=== PATIENT | male | born 1940 | race Caucasian/White ===

== ENCOUNTER → 2016-07-08 | Outpatient (REF) | payer MEDICARE | LOC: M LAB REF 12:13 | PROVIDERS: ATTEND Surgery | DX: C44.519 Basal cell carcinoma of skin of other part of trunk (principal) ==

== ENCOUNTER → 2016-10-31 | Outpatient (REF) | payer MEDICARE | LOC: M LAB REF 12:57 | PROVIDERS: ATTEND Dermatology | DX: C44.519 Basal cell carcinoma of skin of other part of trunk (principal); L57.0 Actinic keratosis; L81.8 Other specified disorders of pigmentation; C44.619 Basal cell carcinoma of skin of left upper limb, including shoulder ==

== ENCOUNTER → 2016-12-02 | Outpatient (REF) | payer MEDICARE ==
[2016-12-02 13:07] LABS: MEAN CORPUSCULAR HEMOGLOBIN 35.4 pg (27.0-33.0); MEAN CORPUSCULAR HGB CONC 35.5 g/dl (32.0-36.5); MEAN CORPUSCULAR VOLUME 99.7 fl (80.0-96.0); RED CELL DISTRIBUTION WIDTH 12.2 % (11.5-14.5)
[2016-12-02 14:10] LABS: ALBUMIN 3.7 GM/DL (3.2-5.2); ALBUMIN/GLOBULIN RATIO 1.42 (1.00-1.93); ALKALINE PHOSPHATASE 95 U/L (45-117); ALT/SGPT 39 U/L (12-78); ANION GAP 6 MEQ/L (8-16); AST/SGOT 25 U/L (15-37); BILIRUBIN,TOTAL 0.5 MG/DL (0.2-1.0); BLOOD UREA NITROGEN 17 MG/DL (7-18); CALCIUM LEVEL 8.8 MG/DL (8.8-10.2); CARBON DIOXIDE LEVEL 32 MEQ/L (21-32); CHLORIDE LEVEL 105 MEQ/L (98-107); CREATININE FOR GFR 0.86 MG/DL (0.70-1.30); GLOMERULAR FILTRATION RATE > 60.0 (>42); GLUCOSE, FASTING 110 MG/DL (83-110); MAGNESIUM LEVEL 2.2 MG/DL (1.8-2.4); POTASSIUM SERUM 3.7 MEQ/L (3.5-5.1); SODIUM LEVEL 143 MEQ/L (136-145); TOTAL PROTEIN 6.3 GM/DL (6.4-8.2)
== END ==
LOC: M LABDRAW1 12:32
PROVIDERS: ATTEND Internal Medicine
DX: I10 Essential (primary) hypertension (principal); Z79.899 Other long term (current) drug therapy; R73.01 Impaired fasting glucose; R97.20 Elevated prostate specific antigen [PSA]

== ENCOUNTER 2017-01-04 19:33 | Emergency (ER) | payer MEDICARE ==
[~2017-01-04] VITALS: Ht 160 cm; Wt 59.1 kg
[2017-01-04] MEDS ORDERED: OMEP20CA3 PO (19:51)
[2017-01-04] MEDS ORDERED: hytrin PO (19:51)
[2017-01-04] MEDS ORDERED: ECOT81TA5 PO (19:51)
[2017-01-04] MEDS ORDERED: ALBU17IN2 INH (19:51)
[2017-01-04] MEDS ORDERED: LIPI80TA PO (19:51)
[2017-01-04] MEDS ORDERED: CALC500T49 PO (19:51)
[2017-01-04] MEDS ORDERED: MELO15TA4 PO (19:51)
[2017-01-04] MEDS ORDERED: CLAR10CA3 PO (19:51)
[2017-01-04] MEDS ORDERED: ATEN50TA9 PO (19:51)
[2017-01-04] MEDS ORDERED: EXFO5TAB PO (19:51)
[2017-01-04] MEDS ORDERED: PROS5TAB PO (19:51)
[2017-01-04] MEDS ORDERED: NASA1SPR (19:51)
[2017-01-04] MEDS ORDERED: POTA20TA FT (19:51)
[2017-01-04] MEDS ORDERED: MULTCAP11 PO (19:51)
[2017-01-04] MEDS ORDERED: METR0.00 TOP (19:51)
[2017-01-04 20:34] LABS: BASO % 0.7 % (0.0-1.0); EOS # 0.2 K/mm3 (0.0-0.50); EOS % 3.1 % (0.0-3.0); LARGE UNSTAINED CELL # 0.1 K/mm3 (0.0-0.4); LARGE UNSTAINED CELL % 1.8 % (0.0-4.0); LYMPH # 1.5 K/mm3 (1.5-4.5); MEAN CORPUSCULAR HEMOGLOBIN 34.7 pg (27.0-33.0); MEAN CORPUSCULAR HGB CONC 36.3 g/dl (32.0-36.5); MEAN CORPUSCULAR VOLUME 95.6 fl (80.0-96.0); MONO # 0.4 K/mm3 (0.0-0.8); MONO % 6.5 % (0.0-5.0); NEUTROPHILS # 4.5 K/mm3 (1.8-7.7); NEUTROPHILS % 67.1 % (36.0-66.0); PLATELET COUNT, AUTOMATED 161 k/mm3 (150-450); RED CELL DISTRIBUTION WIDTH 11.8 % (11.5-14.5); VENOUS BASE EXCESS 3.2 (-2.0-2.0); VENOUS O2 SATURATION 59.9 % (60.0-80.0); VENOUS PARTIAL PRESSURE CO2 40.5 mmHg (38.0-50.0); VENOUS PARTIAL PRESSURE O2 29.9 mmHg (30.0-50.0); VENOUS STANDARD HCO3 26.2 MEQ/L; VENOUS TOTAL CO2 28.6 MEQ/L (24.0-28.0); WHITE BLOOD COUNT 6.7 K/mm3 (4.0-10.0)
[2017-01-04] MEDS: IPRATROPIUM 0.5MG/ALBUTEROL 2.5MG INH SOL UD 3ML (DUONEB)(J7620) NEB PRN ×2 (20:57→21:08)
[2017-01-04 21:00] LABS: ALBUMIN 4.1 GM/DL (3.2-5.2); ALBUMIN/GLOBULIN RATIO 1.64 (1.00-1.93); ALKALINE PHOSPHATASE 113 U/L (45-117); ANION GAP 8 MEQ/L (8-16); AST/SGOT 28 U/L (15-37); BILIRUBIN,DIRECT 0.2 MG/DL (0.0-0.2); BILIRUBIN,TOTAL 0.8 MG/DL (0.2-1.0); BLOOD UREA NITROGEN 19 MG/DL (7-18); CARBON DIOXIDE LEVEL 30 MEQ/L (21-32); CHLORIDE LEVEL 102 MEQ/L (98-107); GLOMERULAR FILTRATION RATE > 60.0 (>42); GLUCOSE, FASTING 113 MG/DL (83-110); POTASSIUM SERUM 3.6 MEQ/L (3.5-5.1); SODIUM LEVEL 140 MEQ/L (136-145); TOTAL PROTEIN 6.6 GM/DL (6.4-8.2)
[2017-01-04 21:04] LABS: ALT/SGPT 40 U/L (12-78)
[2017-01-04 21:49] VITALS: BP 154/65
--- NOTE | 2017-01-05 02:09 | ECGEPIP ---
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
--- NOTE | 2017-01-05 08:44 | REP ---
REASON: Dyspnea. COMPARISON: 05/21/2016 FINDINGS: The superior mediastinal structures are midline. The cardiac silhouette is unremarkable in size, shape, and position. The diaphragmatic surfaces of the lungs are regular, and the costophrenic angles are clear. The pulmonary mccall are clear. The imaged osseous structures are intact. IMPRESSION: There is no acute cardiopulmonary disease. There has been no change from the prior exam. Signed by Andrew Muñoz DO 01/05/2017 09:22 A
[2017-04-08] MEDS ORDERED: LISI10TA4 PO (09:18)
[2017-04-08] MEDS ORDERED: ELIQ5TAB PO (09:18)
== END 2017-01-04 21:51 | disposition home or self-care (01) ==
LOC: M ED 19:33
DX: R06.02 Shortness of breath (principal); I51.9 Heart disease, unspecified; I10 Essential (primary) hypertension; E78.5 Hyperlipidemia, unspecified; Z95.5 Presence of coronary angioplasty implant and graft; Z87.891 Personal history of nicotine dependence; Z82.49 Family history of ischemic heart disease and other diseases of the circulatory system; Z79.82 Long term (current) use of aspirin; Z79.899 Other long term (current) drug therapy

== ENCOUNTER → 2017-01-07 | Outpatient (CLI) | payer MEDICARE ==
[~2017-01-07] MED LIST: ALBU17IN2 INH; AMLO-150; ATEN50TA9 PO; CALC500T49 PO; CLAR10CA3 PO; CLOP75TA2 PO; ECOT81TA5 PO; ELIQ5TAB PO; EXFO5TAB PO; LIPI80TA PO; LISI10TA4 PO; MELO15TA4 PO; METHACHOLINE KIT (J7674) INH ONE; METR0.00 TOP; MULTCAP11 PO; NASA1SPR; OMEP20CA3 PO; POTA20TA FT; PROS5TAB PO; TERA10CA3; hytrin PO
== END ==
LOC: M CARPUL 10:34
PROVIDERS: ATTEND Internal Medicine Pulmonary Disease
DX: R06.02 Shortness of breath (principal); Z53.9 Procedure and treatment not carried out, unspecified reason

== ENCOUNTER → 2017-02-04 | Outpatient (CLI) | payer MEDICARE ==
--- NOTE | 2017-02-04 09:53 | PFTRPT ---
Tech: Eron TINAJERO RRT Age: 76 Sex: Male Race: Height: 65.00 Inches Weight: 150.00 Lbs BSA: 1.75 Diagnosis: R06.02 METHACHOLINE CHALLENGE REPORT: ORDERING PROVIDER: Jose Fountain MD DATE OF SERVICE: 02/04/17 INTERPRETATION: The study was of excellent technical quality. Under protocol, methacholine was administered. Even after a maximal dose of 25 mg (188.875 CDUs) of methacholine , only a maximal 15% decline in the FEV1 was noted. No provocation dose was ever achieved. IMPRESSION: Negative methacholine challenge study. MTDD
== END ==
LOC: M CARPUL 08:43
PROVIDERS: ATTEND Internal Medicine Pulmonary Disease
DX: R06.02 Shortness of breath (principal)
CPT/HCPCS: 94070; 95070; J7674

== ENCOUNTER → 2017-03-02 | Outpatient (CLI) | payer MEDICARE ==
[~2017-03-02] MED LIST changes: -METHACHOLINE KIT (J7674) INH ONE
--- NOTE | 2017-03-06 10:51 | SLEEPCENT ---
DATE OF PROCEDURE: 03/02/2017 ORDERED BY: Dr. Fountain Nocturnal polysomnography was performed due to concern for the obstructive sleep apnea syndrome in this patient with a history of excessive somnolence and snoring complicated by a prior history of acute myocardial infarction. 7 hours and 28 minutes of data were reviewed. There were 348 minutes of sleep identified. Sleep latency was normal at 26 minutes. Rapid eye movement (REM) latency was normal at 71 minutes. Sleep architecture showed fragmentation. Some periods of wake resulted in a reduced sleep efficiency of 78.5%. Total REM time was mildly reduced as well. Electrocardiogram (EKG) showed a sinus rhythm with an average heart rate of 56 beats per minute. Some rate variability was seen surrounding respiratory events. Rate ranged 45 to 80. Electroencephalogram (EEG) showed normal waveforms for awake and sleep. No focal events were identified. There were 57 respiratory events identified of 10 seconds in duration or greater for an apnea-hypopnea index of 9.8. The events were primarily obstructive, not exclusive to sleep stage, more frequent but not exclusive to the supine posture. Arousals from respiratory events occurred 9.8 times per hour when arousals from snoring were included and oxygen desaturations were seen into the 80s. There was also some limb movement activity noted and two trains of 30 events. Limb movement arousal index was borderline at 6.6. IMPRESSION: Obstructive sleep apnea syndrome (G47.33), apnea-hypopnea index 9.8. RECOMMENDATION: The patient should be encouraged to return to the sleep disorder center for pressure therapy. In the interim, alcohol and sedative avoidance should be practiced and caution exercised during the operation of motor vehicles.
== END ==
LOC: M SLEEP 20:00
PROVIDERS: ATTEND Internal Medicine Pulmonary Disease
DX: R06.83 Snoring (principal)

== ENCOUNTER 2017-03-14 09:44 | Emergency (ER) | payer MEDICARE ==
[~2017-03-14] VITALS: Ht 165.1 cm; Wt 68.2 kg
[~2017-03-14 09:44] MED LIST changes: -AMLO-150; -CLOP75TA2 PO; -ELIQ5TAB PO; -LISI10TA4 PO; -TERA10CA3
[2017-03-14] MEDS ORDERED: CLOP75TA2 PO (09:56)
[2017-03-14] MEDS ORDERED: TERA10CA3 (09:56)
[2017-03-14] MEDS ORDERED: AMLO-150 (09:56)
--- NOTE | 2017-03-14 10:22 | REP ---
Portable chest: Single view. History: Chest pain. Comparison study: January 04, 2017. Findings: EKG monitoring electrodes overlie the chest. Lungs are well inflated and clear. Pleural angles are sharp. Heart size is normal. Pulmonary vasculature is not increased. No bony abnormality is seen. Impression: No active disease. Signed by Vamsi Machuca MD 03/14/2017 10:14 A
[2017-03-14 10:24] LABS: BASO % 0.7 % (0.0-1.0); EOS # 0.3 10^3/uL (0.0-0.50); EOS % 4.8 % (0.0-3.0); IMMATURE GRANULOCYTE % 0.2 % (0-0); LYMPH % 19.2 % (24.0-44.0); MEAN CORPUSCULAR HEMOGLOBIN 33.9 pg (27.0-33.0); MEAN CORPUSCULAR HGB CONC 36.5 g/dl (32.0-36.5); MONO # 0.5 10^3/uL (0.0-0.8); MONO % 9.8 % (0.0-5.0); NEUTROPHILS # 3.5 10^3/uL (1.8-7.7); NEUTROPHILS % 65.3 % (36.0-66.0); PLATELET COUNT, AUTOMATED 166 10^3/uL (150-450); RED CELL DISTRIBUTION WIDTH 11.4 % (11.5-14.5); WHITE BLOOD COUNT 5.4 10^3/uL (4.0-10.0)
[2017-03-14 10:39] LABS: INR 0.94
[2017-03-14 11:06] LABS: ALBUMIN 3.8 GM/DL (3.2-5.2); ALBUMIN/GLOBULIN RATIO 1.12 (1.00-1.93); ALKALINE PHOSPHATASE 91 U/L (45-117); ALT/SGPT 45 U/L (12-78); ANION GAP 7 MEQ/L (8-16); AST/SGOT 31 U/L (15-37); BILIRUBIN,DIRECT 0.2 MG/DL (0.0-0.2); BLOOD UREA NITROGEN 15 MG/DL (7-18); CALCIUM LEVEL 9.1 MG/DL (8.8-10.2); CARBON DIOXIDE LEVEL 30 MEQ/L (21-32); CHLORIDE LEVEL 101 MEQ/L (98-107); CREATININE FOR GFR 0.94 MG/DL (0.70-1.30); FREE T4 1.23 NG/DL (0.76-1.46); GLOMERULAR FILTRATION RATE > 60.0 (>42); GLUCOSE, FASTING 112 MG/DL (83-110); POTASSIUM SERUM 3.1 MEQ/L (3.5-5.1); SODIUM LEVEL 138 MEQ/L (136-145); TOTAL PROTEIN 7.2 GM/DL (6.4-8.2)
[2017-03-14] MEDS ORDERED: AMIODARONE HCL 150 MG in APPROPRIATE DILUENT 1 EA IV STA ×2 (11:19→12:39)
[2017-03-14] MEDS ORDERED: ENOXAPARIN 80 MG/0.8 ML SYRINGE (J1650) SC ONE (11:30)
[2017-03-14 13:15] VITALS: BP 143/84
[2017-03-14] MEDS ORDERED: POTASSIUM CHLORIDE 10 MEQ SR TABLET PO ONE (13:30)
--- NOTE | 2017-03-15 05:40 | ECGEPIP ---
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
--- NOTE | 2017-03-16 12:33 | ECGEPIP ---
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
[2017-04-08] MEDS ORDERED: ELIQ5TAB PO (09:18)
[2017-04-08] MEDS ORDERED: LISI10TA4 PO (09:18)
== END 2017-03-14 14:02 | disposition home or self-care (01) ==
LOC: M ED 09:44
DX: I48.0 Paroxysmal atrial fibrillation (principal); I25.10 Atherosclerotic heart disease of native coronary artery without angina pectoris; E87.6 Hypokalemia; I10 Essential (primary) hypertension; J30.2 Other seasonal allergic rhinitis; Z95.5 Presence of coronary angioplasty implant and graft; Z79.82 Long term (current) use of aspirin; Z79.899 Other long term (current) drug therapy
CPT/HCPCS: 71010; 80048; 80076; 82550; 82553; 83690; 83880; 84439; 84443; 84484; 85025; 85610; 85730; 93005; 93041; 94760; 96374; 96375; 99285; J1650

== ENCOUNTER → 2017-04-01 | Outpatient (CLI) | payer MEDICARE ==
[~2017-04-01] MED LIST changes: +AMLO-150; +CLOP75TA2 PO; +ELIQ5TAB PO; +LISI10TA4 PO; +TERA10CA3
--- NOTE | 2017-04-08 07:42 | SLEEPCENT ---
DATE OF PROCEDURE: 04/01/2017 ORDERED BY: Dr. Fountain. Nocturnal polysomnography was performed for the titration of pressure therapy in this patient with obstructive sleep apnea syndrome, apnea-hypopnea index of 9.8. For testing, a ResMed AirTouch F20 full face mask of medium size was used. 4 cm of water pressure were applied to the circuit and the lights were extinguished. 7 hours and 35 minutes of data were reviewed. There were 340 minutes of sleep identified. Sleep latency was prolonged at 80 minutes. REM latency was short at 70 minutes. Sleep architecture improved with optimal pressure therapy. There were 3 rapid eye movement (REM) periods appreciated. Overall sleep efficiency was 75.8%. EKG showed a sinus rhythm with an average heart rate of 55 beats per minute. EEG showed normal wave forms for wake and sleep. Respiratory events persisted prompting an increase in CPAP pressure. Despite optimal mask fit and minimal air leak, the patient was changed to a bilevel device. Respiratory events were found best palliated with bilevel device with inspiratory pressure 13 over expiratory pressure of 8 with which pressure patient slept through REM without respiratory event or oxygen desaturation. Some limb activity was noted in the EMG. Limb movement arousal index was 5.3. IMPRESSION: Obstructive sleep apnea syndrome (G47.33). RECOMMENDATION: Nightly use of bilevel pressure therapy inspiratory 13 over expiratory pressure of 8.
== END ==
LOC: M SLEEP 19:39
PROVIDERS: ATTEND Internal Medicine Pulmonary Disease
DX: G47.33 Obstructive sleep apnea (adult) (pediatric) (principal)

== ENCOUNTER → 2017-05-15 | Outpatient (REF) | payer MEDICARE ==
[2017-05-15 12:43] LABS: MEAN CORPUSCULAR HEMOGLOBIN 33.6 pg (27.0-33.0); MEAN CORPUSCULAR HGB CONC 34.6 g/dl (32.0-36.5); MEAN CORPUSCULAR VOLUME 97.1 fl (80.0-96.0); PLATELET COUNT, AUTOMATED 172 10^3/uL (150-450); RED CELL DISTRIBUTION WIDTH 11.9 % (11.5-14.5); WHITE BLOOD COUNT 4.1 10^3/uL (4.0-10.0)
[2017-05-15 13:22] LABS: ALBUMIN 3.8 GM/DL (3.2-5.2); ALBUMIN/GLOBULIN RATIO 1.41 (1.00-1.93); ALKALINE PHOSPHATASE 85 U/L (45-117); ALT/SGPT 39 U/L (12-78); ANION GAP 9 MEQ/L (8-16); AST/SGOT 24 U/L (7-37); BILIRUBIN,TOTAL 0.7 MG/DL (0.2-1.0); BLOOD UREA NITROGEN 14 MG/DL (7-18); CARBON DIOXIDE LEVEL 30 MEQ/L (21-32); CHLORIDE LEVEL 105 MEQ/L (98-107); CHOLESTEROL LEVEL 121 MG/DL (<200); CREATININE FOR GFR 0.99 MG/DL (0.70-1.30); GLOMERULAR FILTRATION RATE > 60.0 (>42); GLUCOSE, FASTING 107 MG/DL (83-110); MAGNESIUM LEVEL 2.1 MG/DL (1.8-2.4); POTASSIUM SERUM 4.1 MEQ/L (3.5-5.1); SODIUM LEVEL 144 MEQ/L (136-145); TOTAL PROTEIN 6.5 GM/DL (6.4-8.2); TRIGLYCERIDES LEVEL 60 MG/DL (<150)
== END ==
LOC: M LABDRAW1 10:06
PROVIDERS: ATTEND Internal Medicine
DX: I25.10 Atherosclerotic heart disease of native coronary artery without angina pectoris (principal); I10 Essential (primary) hypertension; R73.01 Impaired fasting glucose; E78.00 Pure hypercholesterolemia, unspecified

== ENCOUNTER → 2017-06-30 | Outpatient (REF) | payer MEDICARE | LOC: M SFHCLERA 09:05 | DX: L82.1 Other seborrheic keratosis (principal) | CPT/HCPCS: 88305 ==

== ENCOUNTER → 2017-08-28 | Outpatient (CLI) | payer MEDICARE | LOC: M RAD 07:43 | DX: K76.89 Other specified diseases of liver (principal); N28.1 Cyst of kidney, acquired | CPT/HCPCS: 76705 ==

== ENCOUNTER → 2017-10-09 | Outpatient (REF) | payer MEDICARE | LOC: M SFHCLERA 12:01 | DX: C44.41 Basal cell carcinoma of skin of scalp and neck (principal) | CPT/HCPCS: 88305 ==

== ENCOUNTER → 2017-11-26 | Outpatient (REF) | payer MEDICARE ==
[2017-11-26 12:29] LABS: HEMATOCRIT 38.1 % (42.0-52.0); HEMOGLOBIN 13.1 g/dl (13.5-17.5); MEAN CORPUSCULAR HEMOGLOBIN 33.8 pg (27.0-33.0); MEAN CORPUSCULAR HGB CONC 34.4 g/dl (32.0-36.5); MEAN CORPUSCULAR VOLUME 98.2 fl (80.0-96.0); PLATELET COUNT, AUTOMATED 163 10^3/uL (150-450); RED BLOOD COUNT 3.88 10^6/uL (4.30-6.10); RED CELL DISTRIBUTION WIDTH 11.9 % (11.5-14.5); WHITE BLOOD COUNT 5.8 10^3/uL (4.0-10.0)
[2017-11-26 12:49] LABS: ANION GAP 10 MEQ/L (8-16); BLOOD UREA NITROGEN 22 MG/DL (7-18); CALCIUM LEVEL 8.3 MG/DL (8.8-10.2); CARBON DIOXIDE LEVEL 29 MEQ/L (21-32); CHLORIDE LEVEL 104 MEQ/L (98-107); CREATININE FOR GFR 1.15 MG/DL (0.70-1.30); GLOMERULAR FILTRATION RATE > 60.0 (>42); GLUCOSE, FASTING 130 MG/DL (70-100); POTASSIUM SERUM 3.3 MEQ/L (3.5-5.1); SODIUM LEVEL 143 MEQ/L (136-145)
== END ==
LOC: M LAB REF 12:10
DX: I48.91 Unspecified atrial fibrillation (principal); Z01.812 Encounter for preprocedural laboratory examination
CPT/HCPCS: 80048

== ENCOUNTER → 2017-12-18 | Outpatient (CLI) | payer MEDICARE | LOC: M SMT 15:42 | DX: R06.02 Shortness of breath (principal) | CPT/HCPCS: 71046 ==

== ENCOUNTER → 2018-04-08 | Outpatient (REF) | payer MEDICARE ==
[2018-04-08 11:35] LABS: HEMATOCRIT 37.4 % (42.0-52.0); MEAN CORPUSCULAR HGB CONC 34.8 g/dl (32.0-36.5); MEAN CORPUSCULAR VOLUME 97.9 fl (80.0-96.0); PLATELET COUNT, AUTOMATED 167 10^3/uL (150-450); RED BLOOD COUNT 3.82 10^6/uL (4.30-6.10); RED CELL DISTRIBUTION WIDTH 11.6 % (11.5-14.5); WHITE BLOOD COUNT 4.9 10^3/uL (4.0-10.0)
[2018-04-08 11:49] LABS: ESTIMATED AVERAGE GLUCOSE 105 MG/DL (60-110); HEMOGLOBIN A1c 5.3 %
[2018-04-08 12:28] LABS: ALBUMIN 3.6 GM/DL (3.2-5.2); ALKALINE PHOSPHATASE 94 U/L (45-117); ALT/SGPT 34 U/L (12-78); ANION GAP 9 MEQ/L (8-16); AST/SGOT 26 U/L (7-37); BILIRUBIN,TOTAL 0.8 MG/DL (0.2-1.0); BLOOD UREA NITROGEN 16 MG/DL (7-18); CALCIUM LEVEL 8.8 MG/DL (8.8-10.2); CARBON DIOXIDE LEVEL 30 MEQ/L (21-32); CHLORIDE LEVEL 102 MEQ/L (98-107); CHOLESTEROL LEVEL 114 MG/DL (<200); CHOLESTEROL RISK RATIO 1.932 (<5); CREATININE FOR GFR 0.98 MG/DL (0.70-1.30); GLOMERULAR FILTRATION RATE > 60.0 (>42); GLUCOSE, FASTING 99 MG/DL (70-100); HDL CHOLESTEROL 59 MG/DL (>40); LDL CHOLESTEROL 40 MG/DL (<100); MAGNESIUM LEVEL 2.2 MG/DL (1.8-2.4); NON-HDL-C 55 MG/DL; POTASSIUM SERUM 3.6 MEQ/L (3.5-5.1); PROSTATIC SPECIFIC AG MONITOR 0.33 NG/ML (< 4.0); SODIUM LEVEL 141 MEQ/L (136-145); TRIGLYCERIDES LEVEL 75 MG/DL (<150)
== END ==
LOC: M LABDRAW1 10:35
DX: I10 Essential (primary) hypertension (principal); Z86.010 Personal history of colon polyps; I48.0 Paroxysmal atrial fibrillation; R97.20 Elevated prostate specific antigen [PSA]; R73.01 Impaired fasting glucose
CPT/HCPCS: 83735

== ENCOUNTER 2018-05-01 21:31 | Emergency (ER) | payer MEDICARE ==
[2018-05-01] MEDS: NS 500 ML IV ×2 (22:00→23:20)
[2018-05-01] MEDS: ONDANSETRON 4MG/2ML VIAL (J2405) IV (22:01)
[2018-05-01 22:22] LABS: INR 1.04; PROTHROMBIN TIME 13.8 SECONDS (12.1-14.4)
[2018-05-01 22:23] LABS: PARTIAL THROMBOPLASTIN TIME 23.7 SECONDS (25.4-37.6)
[2018-05-01 22:26] LABS: BASO % 0.3 % (0.0-1.0); EOS # 0.2 10^3/uL (0.0-0.50); EOS % 1.4 % (0.0-3.0); HEMATOCRIT 42.9 % (42.0-52.0); HEMOGLOBIN 14.9 g/dl (13.5-17.5); IMMATURE GRANULOCYTE % 0.6 % (0-3.0); LYMPH # 0.7 10^3/uL (1.5-4.5); LYMPH % 5.8 % (24.0-44.0); MEAN CORPUSCULAR HGB CONC 34.7 g/dl (32.0-36.5); MEAN CORPUSCULAR VOLUME 97.9 fl (80.0-96.0); MONO # 0.7 10^3/uL (0.0-0.8); MONO % 5.8 % (0.0-5.0); NEUTROPHILS # 10.8 10^3/uL (1.8-7.7); NEUTROPHILS % 86.1 % (36.0-66.0); PLATELET COUNT, AUTOMATED 179 10^3/uL (150-450); RED BLOOD COUNT 4.38 10^6/uL (4.30-6.10); RED CELL DISTRIBUTION WIDTH 11.7 % (11.5-14.5); WHITE BLOOD COUNT 12.5 10^3/uL (4.0-10.0)
[2018-05-01 22:30] LABS: ALBUMIN 4.4 GM/DL (3.2-5.2); ALBUMIN/GLOBULIN RATIO 1.57 (1.00-1.93); ALKALINE PHOSPHATASE 114 U/L (45-117); ALT/SGPT 66 U/L (12-78); ANION GAP 10 MEQ/L (8-16); AST/SGOT 45 U/L (7-37); BILIRUBIN,DIRECT 0.3 MG/DL (0.0-0.2); BILIRUBIN,TOTAL 1.1 MG/DL (0.2-1.0); BLOOD UREA NITROGEN 28 MG/DL (7-18); CALCIUM LEVEL 9.4 MG/DL (8.8-10.2); CARBON DIOXIDE LEVEL 28 MEQ/L (21-32); CHLORIDE LEVEL 103 MEQ/L (98-107); GLOMERULAR FILTRATION RATE 57.1 (>42); GLUCOSE, FASTING 186 MG/DL (70-100); LIPASE 185 U/L (73-393); POTASSIUM SERUM 3.4 MEQ/L (3.5-5.1); SODIUM LEVEL 141 MEQ/L (136-145); TOTAL PROTEIN 7.2 GM/DL (6.4-8.2)
[2018-05-02] MEDS: ONDANSETRON 4 MG ORAL DISINTEGRATING TAB (Q0162 PER 1MG) PO (00:35)
[2018-05-02 00:45] LABS: KETONE, URINE AUTO RFX TRACE mg/dL (NEGATIVE); MUCUS, URINE RFX LARGE (NEGATIVE); NITRITE, URINE AUTO RFX NEGATIVE (NEGATIVE); RBC, URINE AUTO RFX 9 /HPF (0-3); SPECIFIC GRAVITY UR AUTO RFX 1.025 (1.002-1.035); SQUAM EPITHELIAL CELL UR AURFX 0 /HPF (0-6); WBC, URINE AUTO RFX 2 /HPF (0-3)
[2018-05-02 01:32] LABS: LEUKOCYTE ESTERASE UR AUTO RFX TRACE (NEGATIVE)
== END 2018-05-02 00:37 | disposition home or self-care (01) ==
LOC: M ED 05-02 00:37
DX: K52.9 Noninfective gastroenteritis and colitis, unspecified (principal); E86.0 Dehydration; I11.9 Hypertensive heart disease without heart failure; I25.10 Atherosclerotic heart disease of native coronary artery without angina pectoris; N40.0 Benign prostatic hyperplasia without lower urinary tract symptoms; Z95.5 Presence of coronary angioplasty implant and graft; Z87.891 Personal history of nicotine dependence; Z79.899 Other long term (current) drug therapy; Z79.01 Long term (current) use of anticoagulants; Z79.82 Long term (current) use of aspirin
CPT/HCPCS: J2405

== ENCOUNTER → 2018-09-28 | Outpatient (REF) | payer MEDICARE ==
[~2018-09-28] MED LIST changes: +KLOR20TA42 FT; +MELO15TA28 PO; -MELO15TA4 PO; -POTA20TA FT; +ZOFR4TAB14 PO
== END ==
LOC: M SFHCPLAZ 20:35
PROVIDERS: ATTEND Dermatology
DX: L57.0 Actinic keratosis (principal); L82.1 Other seborrheic keratosis

== ENCOUNTER → 2018-10-12 | Outpatient (CLI) | payer MEDICARE ==
[2018-10-12 13:12] LABS: HEMATOCRIT 36.2 % (42.0-52.0); HEMOGLOBIN 12.6 g/dl (13.5-17.5); MEAN CORPUSCULAR HEMOGLOBIN 33.8 pg (27.0-33.0); MEAN CORPUSCULAR HGB CONC 34.8 g/dl (32.0-36.5); MEAN CORPUSCULAR VOLUME 97.1 fl (80.0-96.0); PLATELET COUNT, AUTOMATED 167 10^3/uL (150-450); RED BLOOD COUNT 3.73 10^6/uL (4.30-6.10); WHITE BLOOD COUNT 4.6 10^3/uL (4.0-10.0)
[2018-10-12 13:37] LABS: ALBUMIN 3.4 GM/DL (3.2-5.2); ALT/SGPT 34 U/L (12-78); BILIRUBIN,TOTAL 0.4 MG/DL (0.2-1.0); BLOOD UREA NITROGEN 21 MG/DL (7-18); CALCIUM LEVEL 8.2 MG/DL (8.8-10.2); CARBON DIOXIDE LEVEL 29 MEQ/L (21-32); CHLORIDE LEVEL 108 MEQ/L (98-107); CREATININE FOR GFR 1.01 MG/DL (0.70-1.30); GLOMERULAR FILTRATION RATE > 60.0 (>42); GLUCOSE, FASTING 99 MG/DL (70-100); MAGNESIUM LEVEL 2.1 MG/DL (1.8-2.4); POTASSIUM SERUM 3.7 MEQ/L (3.5-5.1); SODIUM LEVEL 143 MEQ/L (136-145); THYROID STIMULATING HORMONE 0.723 uIU/ML (0.358-3.740); TOTAL PROTEIN 6.4 GM/DL (6.4-8.2)
== END ==
LOC: M SMT 10:31
PROVIDERS: ATTEND Internal Medicine
DX: R06.09 Other forms of dyspnea (principal); I10 Essential (primary) hypertension; M54.42 Lumbago with sciatica, left side; I48.0 Paroxysmal atrial fibrillation

== ENCOUNTER → 2019-03-25 | Outpatient (CLI) | payer MEDICARE ==
[~2019-03-25] MED LIST changes: -OMEP20CA3 PO; +OMEP20CA4 PO
[2019-03-25 17:06] LABS: HEMATOCRIT 37.8 % (42.0-52.0); MEAN CORPUSCULAR HGB CONC 34.4 g/dl (32.0-36.5); PLATELET COUNT, AUTOMATED 145 10^3/uL (150-450); RED BLOOD COUNT 3.82 10^6/uL (4.30-6.10); WHITE BLOOD COUNT 5.3 10^3/uL (4.0-10.0)
[2019-03-25 17:30] LABS: ALBUMIN 3.5 GM/DL (3.2-5.2); ALT/SGPT 27 U/L (12-78); BILIRUBIN,TOTAL 0.4 MG/DL (0.2-1.0); BLOOD UREA NITROGEN 19 MG/DL (7-18); CALCIUM LEVEL 8.6 MG/DL (8.8-10.2); CARBON DIOXIDE LEVEL 32 MEQ/L (21-32); CHLORIDE LEVEL 106 MEQ/L (98-107); CREATININE FOR GFR 1.02 MG/DL (0.70-1.30); GLOMERULAR FILTRATION RATE > 60.0 (>42); GLUCOSE, FASTING 102 MG/DL (70-100); MAGNESIUM LEVEL 2.1 MG/DL (1.8-2.4); NT-PRO BNP 371 PG/ML (<450); POTASSIUM SERUM 4.3 MEQ/L (3.5-5.1); SODIUM LEVEL 142 MEQ/L (136-145); TOTAL PROTEIN 6.3 GM/DL (6.4-8.2)
== END ==
LOC: M SMT 15:31
PROVIDERS: ATTEND Nurse Practitioner
DX: E83.42 Hypomagnesemia (principal)

== ENCOUNTER → 2019-04-12 | Outpatient (CLI) | payer MEDICARE ==
[2019-04-15 14:13] LABS: TESTOSTERONE FREE (DIRECT) 1.5 pg/mL (6.6-18.1)
== END ==
LOC: M SMT 09:13
PROVIDERS: ATTEND Internal Medicine Advanced Heart Failure and Transplant Cardiology
DX: R79.89 Other specified abnormal findings of blood chemistry (principal)

== ENCOUNTER → 2019-04-23 | Outpatient (CLI) | payer MEDICARE ==
[2019-04-23 10:36] LABS: FREE T4 1.1 NG/DL (0.76-1.46)
[2019-04-23 10:44] LABS: FOLLICLE STIMULATING HORMONE 73.9 mIU/mL (1.4-18.1); LUTEINIZING HORMONE 38.6 mIU/mL (3.1-34.6)
[2019-04-25 00:06] LABS: TESTOSTERONE FREE (DIRECT) 2.6 pg/mL (6.6-18.1)
== END ==
LOC: M SMT 08:31
PROVIDERS: ATTEND Internal Medicine Advanced Heart Failure and Transplant Cardiology
DX: I11.0 Hypertensive heart disease with heart failure (principal); I50.9 Heart failure, unspecified; D64.9 Anemia, unspecified; E78.00 Pure hypercholesterolemia, unspecified

== ENCOUNTER → 2019-04-23 | Outpatient (CLI) | payer MEDICARE ==
[2019-04-23 10:14] LABS: HEMATOCRIT 37.1 % (42.0-52.0); HEMOGLOBIN 12.3 g/dl (13.5-17.5); MEAN CORPUSCULAR HEMOGLOBIN 32.7 pg (27.0-33.0); MEAN CORPUSCULAR HGB CONC 33.2 g/dl (32.0-36.5); MEAN CORPUSCULAR VOLUME 98.7 fl (80.0-96.0); PLATELET COUNT, AUTOMATED 156 10^3/uL (150-450); RED BLOOD COUNT 3.76 10^6/uL (4.30-6.10)
[2019-04-23 10:40] LABS: ALBUMIN 3.7 GM/DL (3.2-5.2); ALT/SGPT 30 U/L (12-78); BILIRUBIN,TOTAL 0.7 MG/DL (0.2-1.0); BLOOD UREA NITROGEN 21 MG/DL (7-18); CALCIUM LEVEL 9.2 MG/DL (8.8-10.2); CARBON DIOXIDE LEVEL 32 MEQ/L (21-32); CHLORIDE LEVEL 106 MEQ/L (98-107); CHOLESTEROL LEVEL 113 MG/DL (<200); CHOLESTEROL RISK RATIO 1.852 (<5); CREATININE FOR GFR 0.99 MG/DL (0.70-1.30); GLOMERULAR FILTRATION RATE > 60.0 (>42); GLUCOSE, FASTING 106 MG/DL (70-100); HDL CHOLESTEROL 61 MG/DL (>40); LDL CHOLESTEROL 39 MG/DL (<100); MAGNESIUM LEVEL 2.2 MG/DL (1.8-2.4); NON-HDL-C 52 MG/DL; POTASSIUM SERUM 4.1 MEQ/L (3.5-5.1); SODIUM LEVEL 143 MEQ/L (136-145); TOTAL PROTEIN 6.1 GM/DL (6.4-8.2); TRIGLYCERIDES LEVEL 64 MG/DL (<150)
== END ==
LOC: M SMT 08:34
PROVIDERS: ATTEND Internal Medicine
DX: D64.9 Anemia, unspecified (principal); I10 Essential (primary) hypertension; E78.00 Pure hypercholesterolemia, unspecified

== ENCOUNTER → 2019-05-03 | Outpatient (REF) | payer MEDICARE ==
[~2019-05-03] MED LIST changes: +AMLO10CA22; +CALC600T60 PO; +FURO20TA2 PO; +LOTR10CA PO; +METRCRM TOP; -NASA1SPR; +NASA1SPR NARES; +OCUVTAB4 PO; +OMEP-172 PO; -OMEP20CA4 PO; +POTA20TA6 PO; -TERA10CA3; +TERA10CA3 PO; +TEST1.622 TOP; +VITA500T41 PO; +VITMTA PO
== END ==
LOC: M LAB REF 18:27
PROVIDERS: ATTEND Dermatology
DX: C44.42 Squamous cell carcinoma of skin of scalp and neck (principal); C44.320 Squamous cell carcinoma of skin of unspecified parts of face; D04.61 Carcinoma in situ of skin of right upper limb, including shoulder; L57.0 Actinic keratosis

== ENCOUNTER → 2019-05-12 | Outpatient (CLI) | payer MEDICARE ==
[~2019-05-12] MED LIST changes: -AMLO10CA22; -CALC600T60 PO; -FURO20TA2 PO; -LOTR10CA PO; -METRCRM TOP; +NASA1SPR; -NASA1SPR NARES; -OCUVTAB4 PO; -OMEP-172 PO; +OMEP20CA4 PO; -POTA20TA6 PO; +TERA10CA3; -TERA10CA3 PO; -TEST1.622 TOP; -VITA500T41 PO; -VITMTA PO
[2019-05-12 13:52] LABS: HEMATOCRIT 38.5 % (42.0-52.0); HEMOGLOBIN 12.9 g/dl (13.5-17.5); MEAN CORPUSCULAR HGB CONC 33.5 g/dl (32.0-36.5); MEAN CORPUSCULAR VOLUME 98.5 fl (80.0-96.0); PLATELET COUNT, AUTOMATED 167 10^3/uL (150-450); RED BLOOD COUNT 3.91 10^6/uL (4.30-6.10); WHITE BLOOD COUNT 5.5 10^3/uL (4.0-10.0)
[2019-05-12 14:17] LABS: ALBUMIN 3.8 GM/DL (3.2-5.2); ALT/SGPT 30 U/L (12-78); BILIRUBIN,TOTAL 0.8 MG/DL (0.2-1.0); BLOOD UREA NITROGEN 20 MG/DL (7-18); CALCIUM LEVEL 8.9 MG/DL (8.8-10.2); CARBON DIOXIDE LEVEL 30 MEQ/L (21-32); CHLORIDE LEVEL 108 MEQ/L (98-107); CREATININE FOR GFR 0.98 MG/DL (0.70-1.30); GLOMERULAR FILTRATION RATE > 60.0 (>42); GLUCOSE, FASTING 110 MG/DL (70-100); NT-PRO BNP 402 PG/ML (<450); SODIUM LEVEL 143 MEQ/L (136-145); TOTAL PROTEIN 6.1 GM/DL (6.4-8.2)
== END ==
LOC: M PLALAB 10:19
PROVIDERS: ATTEND Nurse Practitioner
DX: I50.9 Heart failure, unspecified (principal); R06.00 Dyspnea, unspecified

== ENCOUNTER 2019-05-23 09:44 | Inpatient (IN) | payer MEDICARE ==
[~2019-05-23] VITALS: Ht 165.1 cm; Wt 69.1 kg
[~2019-05-23 09:44] MED LIST changes: -NASA1SPR; +NASA1SPR NARES; +OMEP-172 PO; -OMEP20CA4 PO; -TERA10CA3; +TERA10CA3 PO
[2019-05-23] MEDS ORDERED: POTA20TA6 PO (09:56)
[2019-05-23] MEDS ORDERED: CLOP75TA2 PO (09:56)
[2019-05-23] MEDS ORDERED: AMLO10CA22 (09:56)
[2019-05-23] MEDS ORDERED: TEST1.622 TOP (09:56)
--- NOTE | 2019-05-23 10:33 | REP ---
Portable chest x-ray: Single view. History: Chest pain. Comparison study: December 18, 2017. Findings: The lungs are well inflated and clear. The pleural angles are sharp. EKG monitoring electrodes are seen overlying the chest. Heart size is normal. Pulmonary vasculature is not increased. No bony abnormality. Minimal linear fibrosis versus plate-like atelectasis left base. Impression: Minimal plate-like atelectasis versus linear fibrosis in the left base. Otherwise no acute disease. Electronically Signed by Vamsi Machuca MD 05/23/2019 10:25 A
[2019-05-23 10:58] LABS: BASO % 0.7 % (0.0-1.0); EOS # 0.2 10^3/uL (0.0-0.5); EOS % 4.3 % (0.0-3.0); HEMATOCRIT 37.2 % (42.0-52.0); HEMOGLOBIN 12.6 g/dl (13.5-17.5); LYMPH # 0.9 10^3/uL (1.5-5.0); LYMPH % 20.4 % (24.0-44.0); MEAN CORPUSCULAR HEMOGLOBIN 33.1 pg (27.0-33.0); MEAN CORPUSCULAR HGB CONC 33.9 g/dl (32.0-36.5); MEAN CORPUSCULAR VOLUME 97.6 fl (80.0-96.0); MONO # 0.5 10^3/uL (0.0-0.8); MONO % 12.2 % (0.0-5.0); NEUTROPHILS # 2.6 10^3/uL (1.5-8.5); NEUTROPHILS % 62.4 % (36.0-66.0); PLATELET COUNT, AUTOMATED 170 10^3/uL (150-450); RED BLOOD COUNT 3.81 10^6/uL (4.30-6.10); WHITE BLOOD COUNT 4.2 10^3/uL (4.0-10.0)
[2019-05-23 11:34] LABS: ALBUMIN 3.6 GM/DL (3.2-5.2); ALT/SGPT 35 U/L (12-78); BILIRUBIN,DIRECT 0.2 MG/DL (0.0-0.2); BILIRUBIN,TOTAL 0.7 MG/DL (0.2-1.0); BLOOD UREA NITROGEN 21 MG/DL (7-18); CALCIUM LEVEL 8.8 MG/DL (8.8-10.2); CARBON DIOXIDE LEVEL 30 MEQ/L (21-32); CHLORIDE LEVEL 105 MEQ/L (98-107); CK-MB VALUE MASS 1.8 NG/ML (<3.6); CPK CREATINE PHOSPHOKINASE 981 U/L (39-308); CREATININE FOR GFR 1.02 MG/DL (0.70-1.30); FREE T4 1.18 NG/DL (0.76-1.46); GLOMERULAR FILTRATION RATE > 60.0 (>42); GLUCOSE, FASTING 98 MG/DL (70-100); MAGNESIUM LEVEL 2.2 MG/DL (1.8-2.4); MB/CK RELATIVE INDEX 0.18 (< OR =4); POTASSIUM SERUM 3.8 MEQ/L (3.5-5.1); SODIUM LEVEL 143 MEQ/L (136-145); THYROID STIMULATING HORMONE 0.632 uIU/ML (0.358-3.740); TROPONIN I < 0.02 NG/ML (< 0.10)
[2019-05-23 15:00] LABS: CK-MB VALUE MASS 1.9 NG/ML (<3.6); MB/CK RELATIVE INDEX 0.23 (< OR =4); TROPONIN I 0.2 NG/ML (< 0.10)
[2019-05-23] MEDS ORDERED: METRCRM TOP (16:04)
[2019-05-23] MEDS ORDERED: FURO20TA2 PO (16:04)
[2019-05-23] MEDS ORDERED: OCUVTAB4 PO (16:04)
[2019-05-23] MEDS ORDERED: VITMTA PO (16:04)
[2019-05-23] MEDS ORDERED: VITA500T41 PO (16:04)
[2019-05-23] MEDS ORDERED: CALC600T60 PO (16:04)
[2019-05-23] MEDS ORDERED: LOTR10CA PO (16:04)
[2019-05-23] MEDS ORDERED: LORATADINE 10 MG TAB PO PRN (17:00)
--- NOTE | 2019-05-23 19:49 | ECGEPIP ---
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
[2019-05-23] MEDS: APIXABAN 5 MG TAB (ELIQUIS) PO SCH (20:25)
[2019-05-23] MEDS ORDERED: ATORVASTATIN 20 MG TAB PO SCH (21:00)
[2019-05-23] MEDS ORDERED: TERAZOSIN 5 MG CAP PO SCH (21:00)
[2019-05-23] MEDS ORDERED: FINASTERIDE 5 MG TAB PO SCH (21:00)
--- NOTE | 2019-05-23 21:13 | HPE ---
DATE OF ADMISSION: 05/23/2019 PRIMARY CARE PROVIDER: Cristian Cruz MD CONSTRUCTION ANALYST: Dr. Haddad CHIEF COMPLAINT: Chest pain, dizziness. HISTORY OF PRESENT ILLNESS: 78-year-old male with a history of paroxysmal atrial fibrillation, status post ablation, obstructive sleep apnea, previous smoker, quit over 40 years ago. He was in his usual state of health until around 8:30 this morning when he complained of palpitations. The patient woke up and had a decaffeinated coffee, then felt heaviness in his left chest along with palpitations. He knew that he was going into atrial fibrillation, went over to take his atenolol and water pill. Took a blood pressure and pulse monitor and found that his blood pressure was 117/76 with a heart rate of 164. When the patient went to get his atenolol and his water pill, as he was trying to take it, he felt very dizzy. The patient stated that his heart rate is usually at 105 and 110 and does not usually bother him. Today, aside from lightheadedness and dizziness, the patient felt very bad for about less than 10 minutes. He woke up his out of bed and told her that he was not feeling well. As they got into the car on the way to the hospital, less than 5 to 10 minutes, the patient felt better and did not require any other interventions. He was found to have a heart rate less than 59. He almost told his to go back but "she made me come to be seen." The patient had a similar episode 1 week ago but did not cause any lightheadedness or dizziness. He only had a fluttering sensation without any chest heaviness. Chest heaviness had no radiation. He did not take any nitroglycerin or extra aspirin this morning. It occurred around 8:30 to 8:45 a.m. He otherwise denied any diaphoresis, epigastric pain, nausea, vomiting or shortness of breath. In the emergency room, he was found to be bradycardic with a rate of 54, blood pressure was 138/65. He was 97% on room air. Electrocardiogram (EKG) showed atrial fibrillation with a rate of 107 on arrival. The hospitalist was called to admit for atrial fibrillation with rapid ventricular response. The patient states that he had an ablation 2 years ago and follows with Dr. Espana in the [facility], heart failure specialist, and had his ablation there. He had also a right heart catheterization and a stress test, all of which were negative. His slitting machine feeder said that his shortness of breath at times is not because of his lungs and his cardiology workup has been negative so far. In the emergency room, cardiac markers showed a total CK of 844, initial troponin was less than 0.02. Repeat troponin at 2:20 was 0.2 with MB fraction normal at 1.9, relative index of 0.23, which is normal. Total CK decreased from 981 on admission to 844 currently. The patient also states that he has cut back on his caffeine intake, usually drinks one cup of regular coffee and half of decaffeinated but currently only drinks decaffeinated coffee and no caffeinated beverages. PAST MEDICAL HISTORY: 1. Hypertension. 2. Hypercholesterolemia. 3. Coronary artery disease, stent. 4. Colonic polyps. 5. Paroxysmal atrial fibrillation status post ablation in 2016. 6. Elevated fasting glucose. 7. Elevated PSA. 8. Adenomatous polyp of the colon. 9. Lumbago with sciatica on the left side. 10. Obstructive sleep apnea on home continuous positive airway pressure (CPAP). 11. Dyspnea on exertion with negative pulmonary and cardiac workup. 12. History of skin cancer. 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 14. Pulmonary hypertension. ALLERGIES: No known drug allergies. PAST SURGICAL HISTORY: 1. Cardiac ablation in 2016. 2. Coronary artery disease and stent times three 11/10/2014. 3. Skin cancer removal in the nose. 4. Skin lesions removed from the chest, back -- basal cell carcinoma. 5. Vasectomy. 6. Colonoscopy with polypectomy. 7. Right and left heart catheterization with pulmonary hypertension with left circumflex drug eluting stent placed 07/30/2018, stents in 03/2017 in the mid ramus and osteo left circumflex, drug eluting. 8. Cardiac ablation 12/03/2017. HOME MEDICATIONS: - apixaban 5 mg twice a day - atorvastatin 40 mg at night - Plavix 75 mg daily - B12 500 mcg daily - Proscar 5 mg at night - Lasix 20 mg daily - loratadine 10 mg daily as needed - metronidazole topically as needed for rosacea. 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 He is and lives at home. He has a smoking history but quit 40 years ago, smoked one pack per day from the age of 19 to the age of 31. Social alcohol use. FAMILY HISTORY: Noncontributory due to age. REVIEW OF SYSTEMS: As per history of present illness. 12-point system otherwise negative. PHYSICAL EXAMINATION: Temperature 97, pulse 69, respiratory rate 18, blood pressure 138/65, 100% on room air. GENERAL: The patient is awake, alert, oriented times three. Appears his stated age. No distress, pallor, icterus or jaundice. The patient is slightly hard of hearing. No jugular venous distention (JVD). No thyromegaly. Moist mucous membranes. No cervical lymphadenopathy. LUNGS: Clear to auscultation with no wheezing, rales or rhonchi. HEART: S1, S2. Irregularly irregular. Bradycardic. ABDOMEN: Soft, nontender, nondistended. Positive bowel sounds. EXTREMITIES: No cyanosis, clubbing or any pitting edema. LABORATORY DATA: White count 4.2, hemoglobin 12, hematocrit 37, platelet count 170. Sodium 143, potassium 3.8, chloride 105, bicarbonate 30, BUN 21, creatinine 1.0, glucose 98, calcium 8.8, magnesium 2.2, total bilirubin 0.7, direct bilirubin 8.2, AST 47, ALT 35, alkaline phosphatase 102. Total CK 81, MB fraction 1.8, relative index 0.1, troponin less than 0.02, total protein 6, albumin 3.6, TSH 0.632, free T4 of 1.1. Repeat cardiac markers: Total CK 844, MB fraction 1.9, relative index 0.23, troponin 0.20. Chest x-ray showed minimal plate-like atelectasis versus linear fibrosis in the left base, otherwise no acute disease. Lungs are well inflated. Pleural angles are sharp. EKG monitoring electrodes are seen overlying the chest. Heart size is normal. Pulmonary vasculature is not increased. No bony abnormality. Minimal linear fibrosis versus plate-like atelectasis at the left base. ASSESSMENT AND PLAN: This is a 78-year-old male patient of Dr. Hadadd with a history of coronary artery disease, stent, obstructive sleep apnea on continuous positive airway pressure (CPAP), hypertension, hypercholesterolemia, paroxysmal atrial fibrillation status post ablation and on chronic anticoagulation, atenolol, followed at [facility] heart failure center by Dr. Espana, had a negative right heart catheterization to evaluate his shortness of breath and negative cardiac stress test, presents with acute onset of palpitations, lightheadedness, dizziness, found to have atrial fibrillation with rapid ventricular response with ventricular rate of 164 documented at home and blood pressure 117. The patient is admitted for the following issues: 1. Atrial fibrillation with rapid ventricular response. We will resume the patient's home dose of atenolol. Rate is controlled at the moment, slightly bradycardic. He is admitted to progressive care unit (PCU) with telemetry to monitor for further rapid ventricular response, titrate medications as needed, cycle cardiac markers. Membership Sales Manager, Dr. Haddad, has been consulted and recommends no further workup aside from cardiac markers and telemetry. The patient had a recent cardiac stress test and right heart catheterization, the results of which will be obtained in the morning. 2. Troponin leak, most likely related to atrial fibrillation with rapid ventricular response and not acute myocardial infarction. Cardiac markers will be cycled every 6 hours. Monitor on telemetry overnight and resume home medications. 3. History of coronary artery disease and stent times three. Resumed on aspirin, Plavix and Eliquis. Continue on Lipitor. 4. Benign prostatic hypertrophy (BPH). Continue on Proscar and terazosin, Hytrin. 5. Allergic rhinitis. On chronic loratadine. 6. Deep vein thrombosis (DVT) prophylaxis. Currently on Eliquis. 7. Diet. 2-gram sodium diet. DISPOSITION: Discharge in the morning if stable overnight. [facility]
[2019-05-23 21:30] VITALS: BP 156/72
[2019-05-23 21:41] LABS: CK-MB VALUE MASS 2.1 NG/ML (<3.6); MB/CK RELATIVE INDEX 0.31 (< OR =4); TROPONIN I 0.2 NG/ML (< 0.10)
[2019-05-23 21:50] VITALS: BP 156/72
[2019-05-24] VITALS: BP 137/63
--- NOTE | 2019-05-24 00:53 | ECGEPIP ---
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
[2019-05-24 04:00] VITALS: BP 131/63
[2019-05-24 05:34] LABS: HEMATOCRIT 35.7 % (42.0-52.0); MEAN CORPUSCULAR HEMOGLOBIN 32.8 pg (27.0-33.0); MEAN CORPUSCULAR HGB CONC 33.6 g/dl (32.0-36.5); MEAN CORPUSCULAR VOLUME 97.5 fl (80.0-96.0); PLATELET COUNT, AUTOMATED 166 10^3/uL (150-450); RED BLOOD COUNT 3.66 10^6/uL (4.30-6.10); WHITE BLOOD COUNT 5.6 10^3/uL (4.0-10.0)
[2019-05-24 06:00] LABS: BLOOD UREA NITROGEN 17 MG/DL (7-18); CALCIUM LEVEL 8.4 MG/DL (8.8-10.2); CARBON DIOXIDE LEVEL 29 MEQ/L (21-32); CHLORIDE LEVEL 105 MEQ/L (98-107); CK-MB VALUE MASS 1.6 NG/ML (<3.6); CPK CREATINE PHOSPHOKINASE 448 U/L (39-308); GLOMERULAR FILTRATION RATE > 60.0 (>42); GLUCOSE, FASTING 99 MG/DL (70-100); MB/CK RELATIVE INDEX 0.36 (< OR =4); POTASSIUM SERUM 3.5 MEQ/L (3.5-5.1); SODIUM LEVEL 141 MEQ/L (136-145)
[2019-05-24 07:32] VITALS: BP 126/57
[2019-05-24] MEDS: APIXABAN 5 MG TAB (ELIQUIS) PO SCH (08:11)
[2019-05-24] MEDS ORDERED: CLOPIDOGREL 75 MG TAB PO SCH (09:00)
[2019-05-24] MEDS ORDERED: CYANOCOBALAMIN 500 MCG TAB PO SCH (09:00)
[2019-05-24] MEDS ORDERED: OCUVITE 1 TAB PO SCH (09:00)
[2019-05-24] MEDS ORDERED: POTASSIUM CHLORIDE 10 MEQ SR TABLET PO SCH (09:00)
[2019-05-24] MEDS ORDERED: OMEPRAZOLE 20 MG CAP PO SCH (09:00)
[2019-05-24] MEDS ORDERED: MULTIVITAMINS/MINERALS THERAP 1 TAB PO SCH (09:00)
[2019-05-24] MEDS ORDERED: FUROSEMIDE 20 MG TAB PO SCH (09:00)
[2019-05-24 09:13] LABS: CHOLESTEROL LEVEL 97 MG/DL (<200); CHOLESTEROL RISK RATIO 1.763 (<5); HDL CHOLESTEROL 55 MG/DL (>40); LDL CHOLESTEROL 34 MG/DL (<100); NON-HDL-C 42 MG/DL; TRIGLYCERIDES LEVEL 39 MG/DL (<150)
--- NOTE | 2019-05-25 13:02 | DSES ---
DATE OF ADMISSION: 05/23/2019 DATE OF DISCHARGE: 05/24/2019 PRIMARY DISCHARGE DIAGNOSES: 1. Paroxysmal atrial fibrillation with rapid ventricular response. 2. Troponin leak secondary to atrial fibrillation with rapid ventricular response. 3. Hypertension. 4. Hypercholesterolemia. 5. History of coronary artery disease (CAD) and stent. 6. Elevated prostate-specific antigen (PSA). 7. Elevated fasting glucose. 8. Colonic polyps. 9. Obstructive sleep apnea on chronic CPAP. 78-year-old male with a history of paroxysmal atrial fibrillation status post ablation who presented with acute onset of chest heaviness on the left along with palpitations and feeling of lightheadedness. The patient took his blood pressure and pulse monitor and found that his heart rate was 164. He then went over to take his medications when he felt lightheaded and dizzy. He then took his atenolol and a water pill, woke up his and presented to the ER. Less than [address] to the ER the patient's symptoms resolved and he felt like going back home, but the made him come back for further evaluation. In the ER, he was noted to have atrial fibrillation with rate of 107, then became atrial fibrillation with low rate of 50s and the patient was admitted overnight for further evaluation. He was continued on his home dose of medications including atenolol. Troponin on admission was 0.2 and returned back to 0.1 on discharge. The patient had no recurrent episodes of chest pain. Dr. Haddad was consulted and had cleared the patient for discharge home. Chest x-ray was negative for aortic dissection aneurysm. There is mild platelike atelectasis and linear fibrosis at the left base, but no acute disease. PHYSICAL ON DISCHARGE: Temperature 97.3, pulse 70, respiratory rate 18, blood pressure 126/57, 96% on room air. Lungs are clear to auscultation. No wheezing, rales or rhonchi. Heart S1, S2, irregularly irregular. Abdomen is soft, nontender, nondistended. Extremities no pitting edema. LABORATORY DATA: White count 5.6, hemoglobin 12, hematocrit 35, platelet count 166. TSH 0.632, troponin 0.1, total CK 448, CK-MB 1.6, MB relative index 0.36, sodium 141, potassium 3.5, chloride 105, bicarb 29, BUN 17, random glucose of 99. IMAGING STUDIES: Chest x-ray platelike atelectasis versus linear fibrosis in the left base, otherwise no acute disease. DISCHARGE MEDICATIONS: - amlodipine/benazepril 10-20 one tab daily - Eliquis 5 mg twice a day - atenolol/chlorthalidone 50-25 0.5 mg daily - atorvastatin 40 mg at bedtime - calcium 600 mg daily - Plavix 75 mg daily - vitamin B12 500 mcg daily - Proscar 5 mg at bedtime - Lasix 20 mg daily - Claritin 10 mg daily as needed - Flagyl topical cream for rosacea as needed - multivitamin one tablet daily - Prilosec 20 mg daily - potassium 40 mEq daily - terazosin 10 mg at bedtime - testosterone topically daily - Nasacort two sprays at bedtime - PreserVision AREDS one tablet daily DISCHARGE INSTRUCTIONS: Patient is to have an immediate followup with Dr. Haddad to rule out tachy-elizabeth syndrome. The patient may need a repeat Holter monitor or [place] of Hearts monitor to see if the patient has sick sinus syndrome, may need a pacer placement. At this time, he is to resume his home medications. He is to call his primary care physician and followup within one week of discharge and evp general counsel within five days of hospital discharge. Time spent on discharge: 30 minutes.
--- NOTE | 2019-05-25 14:11 | CR ---
CARDIOLOGY PROGRESS NOTE DATE OF CONSULTATION: 05/24/2019 REQUESTING PROVIDER: Mary Moya MD REASON FOR CONSULTATION: Atrial fibrillation (AFib), rapid ventricular response (RVR), with history of ablation. HISTORY OF PRESENT ILLNESS: Mr. Gregg is a 78-year-old male, well known to our practice. He has come into the hospital after experiencing shortness of breath and palpitations after he consumed coffee yesterday morning. He does have an extensive history that includes paroxysmal AFib with ablation in [place], as well as coronary artery disease (CAD) of a left coronary artery in ramus intermedius. He had a cardiac catheterization recently with two new stents in the circumflex and ramus intermedius. He states he can tell when he goes into AFib, and that is what it felt like yesterday morning after his coffee. He states his heart rate at home was in the 160s when he checked, and blood pressure was normal 110s/70s. Along with palpitations, he felt dizzy and nauseous. He started to feel better on his own without any interventions after 10-15 minute episode. He denies any recent changes in medications or major illnesses. He denies any chest pain or pressure or tightness or any actual loss of consciousness. Surprisingly, in the emergency room (ER), by the time he had arrived, his heart rate was now back down into the 50s. Again, blood pressure remained normal. Electrocardiogram (EKG) confirmed AFib with a rate of 107. Thus far, his first set of cardiac markers were negative and then up to 0.2 times two and then improved to 0.1 troponin as of this morning. He is symptomatically feeling better today. No longer short of breath or feeling a racing heart. He is seen at bedside in progressive care unit (PCU) and is eager to go home. There are not any acute concerns on his EKG or telemetry. 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 ALLERGIES: None. 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 Remote smoking history, about one pack a day for about 12 years and has not smoked for the past 30+ years. Drinks alcohol only socially. Denies any illegal substances. FAMILY HISTORY: He believes there is some heart disease on both sides but unclear on specifics. PAST SURGICAL HISTORY: Cardiac ablation in 2017 and 2018 for AFib and RVR, CAD status post three stents in 2014, and then a right heart catheterization with left circumflex drug-eluting stent in 2019, as well as stents in 2017 in the ramus intermedius and left circumflex, skin cancer excision of the nose and basal cell carcinoma excision over chest and back, vasectomy. HOME MEDICATIONS: - amlodipine/benazepril 10/20 mg one capsule daily - Eliquis 5 mg by mouth twice a day - atenolol/chlorthalidone 50/25 mg 1/2 tablet daily - Lipitor 40 mg by mouth nightly - Tums daily - Plavix 75 mg by mouth daily - vitamin B12 daily - Proscar daily - furosemide 20 mg by mouth daily - Claritin - multivitamins - omeprazole - potassium chloride 40 mEq daily - terazosin - testosterone - Nasacort - PreserVision tablets REVIEW OF SYSTEMS: Ten-point review of systems asked and negative as per history of present illness (HPI). PHYSICAL EXAMINATION: Vital signs: Temperature 97.3, pulse 70, respirations 18, blood pressure (BP) 126/57, mean arterial pressure (MAP) of 80s, pulse oximetry 96% on room air. Per his chart, he is 69 kg and body mass index (BMI) of 25. Resting comfortably in bed in no acute distress, fully alert and oriented, and appropriately conversant. No elevation in jugular venous pulse (JVP). Lung sounds are essentially clear throughout with minimal rhonchi that clear with coughing. Equal chest rise bilaterally. No accessory muscle use or signs of respiratory distress. Heart rate is controlled in the high 80s-90s on examination. Irregular rhythm. Abdomen: Is soft and nontender. Minimal lower extremity edema without any tenderness. LABORATORIES: WBC 5.6, hemoglobin 12, platelets 166. Sodium and potassium 141 and 3.5 with creatinine 1. Troponin trend shows it was negative , again 0.2 overnight, and then down to 0.1 as of this morning. Lipid panel is all surprisingly normal. Thyroid and T4 are normal. IMAGING: Chest x-ray on admission reveals minimal plate-like atelectasis versus linear fibrosis in the left base, otherwise no acute disease. This is per his official read. EKG in the ER reports a heart rate of 59 in sinus bradycardia. ASSESSMENT AND PLAN: Mr. Gregg is a 78-year-old male with a history of coronary artery disease with a history of stents and a recent heart catheterization. He follows in [place] with Dr. Zachariah Espana in [facility]. Their office number is ([id number]) . The patient comes in for palpitations with associated dizziness and lightheadedness and reportedly in AFib and a heart rate in the 150s-160s at home. Found to be actually bradycardic on admission, and now rate is controlled at my time of examination. Considering that his heart rate has normalized on its own and has remained well controlled throughout the night into this morning and the patient is no longer symptomatic, we recommend continuing his regular home regimen and monitoring. He is chronically on Eliquis. He had a recent event recorder that confirmed AFib 2 days ago with an average heart rate in the 60s with a few episodes in the low 60s. His options would include a new antiarrhythmic agent versus possible cardiac ablation. However, these would most likely be considered on an outpatient basis. He did have a mild troponin leak during his stay at 0.2. However, unlikely to be in true ACS event given he was asymptomatic, no chest pain. The troponin leak was likely in response to his RVR episode and has downtrended this morning back to 0.1. Will continue following him in the outpatient basis. I did touch base with his tension machine operator in the [facility], who is Dr. Zachariah Espana, to followup on his recent nuclear stress test and right heart catheterization that he underwent this past week on last 05/18/2019. Per their office staff, they confirmed his nuclear stress test was normal study with an EF of 72%, similar to that of his 2017 stress test. Regarding his right heart catheterization, it was found to have normal right and left filling pressures with pulmonary artery pressures in impaired exercise capacity due to leg fatigue. There was a small increase in cardiac index with exertion, cardiac index up to 2.5, central venous pressure (CVP) of 9, pulmonary artery pressure of 2.4, wedge pressure of 17, but otherwise normal without any recent intervention done last week. Given the above findings, if he does remain otherwise hemodynamically and medically stable, he was okay to be discharged home, to followup in clinic with his normal providers and tension machine operator. If he does get symptomatic again with heart rates tachycardic, he may add on an additional small dose of atenolol if needed. At this point, we will hold off on any antiarrhythmics given his history of coronary artery disease. He is otherwise doing well. No longer in RVR this morning.
== END 2019-05-24 12:00 | disposition home or self-care (01) | DRG 310 ==
LOC: M ED 09:44 → M ED INP 15:43 → ENRESERV 20:49 → M PCU 21:11
PROVIDERS: ADMIT General Practice; ATTEND General Practice
DX: I48.0 Paroxysmal atrial fibrillation (principal); I10 Essential (primary) hypertension; E78.00 Pure hypercholesterolemia, unspecified; I25.10 Atherosclerotic heart disease of native coronary artery without angina pectoris; Z95.2 Presence of prosthetic heart valve; G47.33 Obstructive sleep apnea (adult) (pediatric); Z79.899 Other long term (current) drug therapy; Z87.891 Personal history of nicotine dependence; I27.20 Pulmonary hypertension, unspecified; Z85.828 Personal history of other malignant neoplasm of skin; H90.3 Sensorineural hearing loss, bilateral; M54.5 Low back pain; N40.0 Benign prostatic hyperplasia without lower urinary tract symptoms; J31.0 Chronic rhinitis; Z79.01 Long term (current) use of anticoagulants; R97.20 Elevated prostate specific antigen [PSA]

== ENCOUNTER → 2019-06-29 | Outpatient (REF) | payer MEDICARE ==
[~2019-06-29] MED LIST changes: -AMLO-150; +AMLO-179; +AMLO10CA22; +CALC600T60 PO; +FURO20TA2 PO; +LOTR10CA PO; +METRCRM TOP; +OCUVTAB4 PO; -OMEP-172 PO; +OMEP1CAP73 PO; +POTA20TA6 PO; +TEST1.622 TOP; +VITA500T41 PO; +VITMTA PO
== END ==
LOC: M LAB REF 09:35
PROVIDERS: ATTEND Dermatology
DX: C44.42 Squamous cell carcinoma of skin of scalp and neck (principal)

== ENCOUNTER → 2019-07-07 | Outpatient (CLI) | payer MEDICARE ==
[~2019-07-07] MED LIST changes: +AMLO-150; -AMLO-179
[2019-07-07 18:50] LABS: ALBUMIN 3.8 GM/DL (3.2-5.2); ALT/SGPT 26 U/L (12-78); BILIRUBIN,TOTAL 0.6 MG/DL (0.2-1.0); BLOOD UREA NITROGEN 18 MG/DL (7-18); CALCIUM LEVEL 8.3 MG/DL (8.8-10.2); CARBON DIOXIDE LEVEL 29 MEQ/L (21-32); CHLORIDE LEVEL 109 MEQ/L (98-107); CREATININE FOR GFR 0.92 MG/DL (0.70-1.30); GLOMERULAR FILTRATION RATE > 60.0 (>42); GLUCOSE, FASTING 107 MG/DL (70-100); POTASSIUM SERUM 4.6 MEQ/L (3.5-5.1); SODIUM LEVEL 143 MEQ/L (136-145); TOTAL PROTEIN 6.2 GM/DL (6.4-8.2)
== END ==
LOC: M PLALAB 13:54
PROVIDERS: ATTEND Nurse Practitioner Family
DX: I50.30 Unspecified diastolic (congestive) heart failure (principal); I11.0 Hypertensive heart disease with heart failure

== ENCOUNTER → 2019-07-12 | Outpatient (CLI) | payer MEDICARE ==
[2019-07-12 12:42] LABS: BLOOD UREA NITROGEN 17 MG/DL (7-18); CALCIUM LEVEL 8.7 MG/DL (8.8-10.2); CARBON DIOXIDE LEVEL 29 MEQ/L (21-32); CHLORIDE LEVEL 109 MEQ/L (98-107); CREATININE FOR GFR 0.93 MG/DL (0.70-1.30); GLOMERULAR FILTRATION RATE > 60.0 (>42); GLUCOSE, FASTING 109 MG/DL (70-100); MAGNESIUM LEVEL 1.8 MG/DL (1.8-2.4); POTASSIUM SERUM 4.1 MEQ/L (3.5-5.1); SODIUM LEVEL 143 MEQ/L (136-145)
== END ==
LOC: M PLALAB 10:21
PROVIDERS: ATTEND Internal Medicine Cardiovascular Disease
DX: I48.91 Unspecified atrial fibrillation (principal)

== ENCOUNTER → 2019-07-13 | Outpatient (REF) | payer MEDICARE | LOC: M LAB REF 09:25 | PROVIDERS: ATTEND Dermatology | DX: L57.0 Actinic keratosis (principal) ==

== ENCOUNTER → 2019-08-03 | Outpatient (CLI) | payer MEDICARE ==
[~2019-08-03] MED LIST changes: -AMLO-150; +AMLO-179
[2019-08-03 13:35] LABS: CALCIUM LEVEL 9.2 MG/DL (8.8-10.2); CREATININE FOR GFR 1.57 MG/DL (0.70-1.30); GLOMERULAR FILTRATION RATE 45.8 (>42); POTASSIUM SERUM 4.4 MEQ/L (3.5-5.1)
== END ==
LOC: M PLALAB 10:29
PROVIDERS: ATTEND Internal Medicine Critical Care Medicine
DX: I50.30 Unspecified diastolic (congestive) heart failure (principal)

== ENCOUNTER → 2019-08-16 | Outpatient (CLI) | payer MEDICARE ==
[2019-08-16 16:21] LABS: CALCIUM LEVEL 9.1 MG/DL (8.8-10.2); CREATININE FOR GFR 1.54 MG/DL (0.70-1.30); GLOMERULAR FILTRATION RATE 46.9 (>42); POTASSIUM SERUM 4.4 MEQ/L (3.5-5.1)
== END ==
LOC: M PLALAB 13:11
PROVIDERS: ATTEND Internal Medicine Critical Care Medicine
DX: I50.30 Unspecified diastolic (congestive) heart failure (principal)

== ENCOUNTER → 2019-09-30 | Outpatient (CLI) | payer MEDICARE ==
[2019-09-30 12:23] LABS: HEMATOCRIT 36.1 % (42.0-52.0); HEMOGLOBIN 12.8 g/dl (13.5-17.5); MEAN CORPUSCULAR HEMOGLOBIN 35.1 pg (27.0-33.0); MEAN CORPUSCULAR HGB CONC 35.5 g/dl (32.0-36.5); MEAN CORPUSCULAR VOLUME 98.9 fl (80.0-96.0); PLATELET COUNT, AUTOMATED 166 10^3/uL (150-450); RED BLOOD COUNT 3.65 10^6/uL (4.30-6.10); WHITE BLOOD COUNT 5.3 10^3/uL (4.0-10.0)
[2019-09-30 12:57] LABS: ALBUMIN 3.9 GM/DL (3.2-5.2); BILIRUBIN,TOTAL 0.5 MG/DL (0.2-1.0); CREATININE FOR GFR 1.46 MG/DL (0.70-1.30); GLOMERULAR FILTRATION RATE 49.8 (>42); POTASSIUM SERUM 4.3 MEQ/L (3.5-5.1); TOTAL PROTEIN 6.5 GM/DL (6.4-8.2)
== END ==
LOC: M PLALAB 10:20
PROVIDERS: ATTEND Nurse Practitioner Family
DX: I42.9 Cardiomyopathy, unspecified (principal); I50.30 Unspecified diastolic (congestive) heart failure

== ENCOUNTER → 2019-10-13 | Outpatient (REF) | payer MEDICARE ==
[2019-10-13 14:01] LABS: HEMOGLOBIN 12.6 g/dl (13.5-17.5); MEAN CORPUSCULAR HEMOGLOBIN 35.1 pg (27.0-33.0); MEAN CORPUSCULAR VOLUME 100.3 fl (80.0-96.0); PLATELET COUNT, AUTOMATED 165 10^3/uL (150-450); RED BLOOD COUNT 3.59 10^6/uL (4.30-6.10); WHITE BLOOD COUNT 5.3 10^3/uL (4.0-10.0)
[2019-10-13 14:17] LABS: HEMOGLOBIN A1c 5.9 %
[2019-10-13 14:34] LABS: ALBUMIN 3.8 GM/DL (3.2-5.2); BILIRUBIN,TOTAL 0.6 MG/DL (0.2-1.0); CALCIUM LEVEL 9.3 MG/DL (8.8-10.2); CREATININE FOR GFR 1.36 MG/DL (0.70-1.30); MAGNESIUM LEVEL 2.3 MG/DL (1.8-2.4); POTASSIUM SERUM 4.6 MEQ/L (3.5-5.1); TOTAL PROTEIN 6.5 GM/DL (6.4-8.2)
== END ==
LOC: M PLALAB 09:48
PROVIDERS: ATTEND Internal Medicine
DX: D64.9 Anemia, unspecified (principal); I10 Essential (primary) hypertension; R73.01 Impaired fasting glucose

== ENCOUNTER → 2019-10-18 | Outpatient (REF) | payer MEDICARE | LOC: M LAB REF 18:07 | PROVIDERS: ATTEND Dermatology | DX: C44.41 Basal cell carcinoma of skin of scalp and neck (principal); D04.62 Carcinoma in situ of skin of left upper limb, including shoulder ==

== ENCOUNTER → 2019-11-23 | Outpatient (REF) | payer MEDICARE | LOC: M LAB REF 08:39 | PROVIDERS: ATTEND Dermatology | DX: L90.5 Scar conditions and fibrosis of skin (principal) ==

== ENCOUNTER → 2020-01-03 | Outpatient (REF) | payer MEDICARE ==
[2020-03-27 11:27] LABS: GLUCOSE, FASTING SEE SEPARATE REPORT MG/DL
== END ==
LOC: M PLALAB 12:32
PROVIDERS: ATTEND Internal Medicine Cardiovascular Disease
DX: I10 Essential (primary) hypertension (principal)

== ENCOUNTER → 2020-01-25 | Outpatient (REF) | payer MEDICARE ==
[2020-04-05 05:49] LABS: ALBUMIN 3.6 GM/DL (3.2-5.2); BILIRUBIN,TOTAL 0.5 MG/DL (0.2-1.0); CALCIUM LEVEL 8.9 MG/DL (8.8-10.2); CREATININE FOR GFR 1.29 MG/DL (0.70-1.30); GLOMERULAR FILTRATION RATE 57.3 (>42); POTASSIUM SERUM 4.3 MEQ/L (3.5-5.1); TOTAL PROTEIN 5.9 GM/DL (6.4-8.2)
== END ==
LOC: M LABSMT 12:32
PROVIDERS: ATTEND Internal Medicine
DX: I10 Essential (primary) hypertension (principal)

== ENCOUNTER → 2020-03-17 | Outpatient (REF) | payer MEDICARE ==
[2020-03-17 14:14] LABS: HEMATOCRIT 34.6 % (42.0-52.0); HEMOGLOBIN 11.6 g/dl (13.5-17.5); MEAN CORPUSCULAR HEMOGLOBIN 34.4 pg (27.0-33.0); MEAN CORPUSCULAR HGB CONC 33.5 g/dl (32.0-36.5); MEAN CORPUSCULAR VOLUME 102.7 fl (80.0-96.0); PLATELET COUNT, AUTOMATED 156 10^3/uL (150-450); RED BLOOD COUNT 3.37 10^6/uL (4.30-6.10); WHITE BLOOD COUNT 4.1 10^3/uL (4.0-10.0)
[2020-03-17 14:45] LABS: ALBUMIN 3.7 GM/DL (3.2-5.2); ALT/SGPT 31 U/L (12-78); BILIRUBIN,TOTAL 0.5 MG/DL (0.2-1.0); BLOOD UREA NITROGEN 29 MG/DL (7-18); CALCIUM LEVEL 8.7 MG/DL (8.8-10.2); CARBON DIOXIDE LEVEL 30 MEQ/L (21-32); CHLORIDE LEVEL 104 MEQ/L (98-107); CHOLESTEROL LEVEL 102 MG/DL (<200); CHOLESTEROL RISK RATIO 1.888 (<5); CREATININE FOR GFR 1.21 MG/DL (0.70-1.30); GLOMERULAR FILTRATION RATE > 60.0 (>42); GLUCOSE, FASTING 105 MG/DL (70-100); HDL CHOLESTEROL 54 MG/DL (>40); LDL CHOLESTEROL 30 MG/DL (<100); MAGNESIUM LEVEL 2.5 MG/DL (1.8-2.4); NON-HDL-C 48 MG/DL; POTASSIUM SERUM 3.9 MEQ/L (3.5-5.1); SODIUM LEVEL 140 MEQ/L (136-145); TOTAL PROTEIN 6.2 GM/DL (6.4-8.2); TRIGLYCERIDES LEVEL 90 MG/DL (<150)
== END ==
LOC: M PLALAB 09:45
PROVIDERS: ATTEND Internal Medicine
DX: R06.09 Other forms of dyspnea (principal); I10 Essential (primary) hypertension; E78.00 Pure hypercholesterolemia, unspecified

== ENCOUNTER → 2020-09-12 | Outpatient (REF) | payer MEDICARE ==
[~2020-09-12] MED LIST changes: +LISI10TA22 PO; -LISI10TA4 PO
== END ==
LOC: M LAB REF 18:33
PROVIDERS: ATTEND Dermatology
DX: L57.0 Actinic keratosis (principal); L57.8 Other skin changes due to chronic exposure to nonionizing radiation

== ENCOUNTER → 2020-09-27 | Outpatient (REF) | payer MEDICARE ==
[2020-09-27 11:35] LABS: BASO % 0.6 % (0.0-1.0); EOS # 0.2 10^3/uL (0.0-0.5); EOS % 4.8 % (0.0-3.0); HEMATOCRIT 35.2 % (42.0-52.0); HEMOGLOBIN 11.8 g/dl (13.5-17.5); LYMPH # 1.1 10^3/uL (1.5-5.0); MEAN CORPUSCULAR HEMOGLOBIN 34.6 pg (27.0-33.0); MEAN CORPUSCULAR HGB CONC 33.5 g/dl (32.0-36.5); MEAN CORPUSCULAR VOLUME 103.2 fl (80.0-96.0); MONO # 0.5 10^3/uL (0.0-0.8); MONO % 10.2 % (2.0-8.0); NEUTROPHILS % 62.2 % (36.0-66.0); PLATELET COUNT, AUTOMATED 161 10^3/uL (150-450); RED BLOOD COUNT 3.41 10^6/uL (4.30-6.10); WHITE BLOOD COUNT 4.8 10^3/uL (4.0-10.0)
[2020-09-27 12:12] LABS: HEMOGLOBIN A1c 5.2 %
[2020-09-27 12:15] LABS: ALBUMIN 3.7 GM/DL (3.2-5.2); ALT/SGPT 33 U/L (12-78); BILIRUBIN,TOTAL 0.4 MG/DL (0.2-1.0); BLOOD UREA NITROGEN 27 MG/DL (7-18); CALCIUM LEVEL 8.6 MG/DL (8.8-10.2); CARBON DIOXIDE LEVEL 30 MEQ/L (21-32); CHLORIDE LEVEL 108 MEQ/L (98-107); GLOMERULAR FILTRATION RATE > 60.0 (>42); GLUCOSE, FASTING 111 MG/DL (70-100); MAGNESIUM LEVEL 2.4 MG/DL (1.8-2.4); POTASSIUM SERUM 4.2 MEQ/L (3.5-5.1); PROSTATIC SPECIFIC AG MONITOR 0.13 NG/ML (< 4.00); SODIUM LEVEL 143 MEQ/L (136-145)
[2020-09-27 12:19] LABS: FOLATE > 24.0 NG/ML; VITAMIN B12 LEVEL > 2000 PG/ML
== END ==
LOC: M PLALAB 09:07
PROVIDERS: ATTEND Internal Medicine
DX: G47.33 Obstructive sleep apnea (adult) (pediatric) (principal); I10 Essential (primary) hypertension; R73.01 Impaired fasting glucose; D64.9 Anemia, unspecified; R97.20 Elevated prostate specific antigen [PSA]

== ENCOUNTER → 2021-03-30 | Outpatient (CLI) | payer MEDICARE ==
[~2021-03-30] MED LIST changes: -KLOR20TA42 FT; +POTA-141 FT; -TEST1.622 TOP; +TEST75GE TOP
[2021-03-30 13:23] LABS: BASO % 0.9 % (0.0-1.0); EOS # 0.2 10^3/uL (0.0-0.5); HEMATOCRIT 34.4 % (42.0-52.0); HEMOGLOBIN 11.5 g/dl (13.5-17.5); LYMPH # 0.9 10^3/uL (1.5-5.0); LYMPH % 21.4 % (24.0-44.0); MEAN CORPUSCULAR HEMOGLOBIN 33.9 pg (27.0-33.0); MEAN CORPUSCULAR HGB CONC 33.4 g/dl (32.0-36.5); MEAN CORPUSCULAR VOLUME 101.5 fl (80.0-96.0); MONO # 0.5 10^3/uL (0.0-0.8); MONO % 11.6 % (2.0-8.0); NEUTROPHILS # 2.7 10^3/uL (1.5-8.5); NEUTROPHILS % 60.9 % (36.0-66.0); PLATELET COUNT, AUTOMATED 155 10^3/uL (150-450); RED BLOOD COUNT 3.39 10^6/uL (4.30-6.10); WHITE BLOOD COUNT 4.4 10^3/uL (4.0-10.0)
[2021-03-30 13:54] LABS: HEMOGLOBIN A1c 5.3 %
[2021-03-30 14:00] LABS: CREATININE FOR GFR 1.32 MG/DL (0.70-1.30); GLOMERULAR FILTRATION RATE 55.7 (>42); POTASSIUM SERUM 4.2 MEQ/L (3.5-5.1)
[2021-03-30 14:01] LABS: ALBUMIN 3.5 GM/DL (3.2-5.2); BILIRUBIN,TOTAL 0.5 MG/DL (0.2-1.0); CALCIUM LEVEL 8.7 MG/DL (8.8-10.2); MAGNESIUM LEVEL 2.4 MG/DL (1.8-2.4); PERCENT SATURATION 24.9 % (19.7-50.0); TOTAL PROTEIN 6.3 GM/DL (6.4-8.2)
== END ==
LOC: M PLALAB 09:41
PROVIDERS: ATTEND Internal Medicine
DX: I10 Essential (primary) hypertension (principal); R73.01 Impaired fasting glucose; E78.00 Pure hypercholesterolemia, unspecified; D64.9 Anemia, unspecified

== ENCOUNTER → 2021-04-11 | Outpatient (CLI) | payer MEDICARE ==
--- NOTE | 2021-04-11 12:46 | REP ---
INDICATION: LIVER CYST. COMPARISON: 08/28/2017 TECHNIQUE: Real-time sonographic evaluation of the right upper quadrant with Doppler FINDINGS: Multiple ultrasonographic images of the liver show the hepatic parenchymal echo texture to appear unremarkable. There are no focal masses. Note is again made of a cyst and the left lobe which is unchanged. There is no intrahepatic ductal dilatation. The common bile duct measures approximately 4 mm in its greatest transverse dimension. Multiple ultrasonographic images of the gallbladder show no focal or diffuse gallbladder wall thickening. There are no echogenic foci within the gallbladder lumen, which casts acoustic shadows. There is no pericholecystic edema. Images of the pancreatic region show no gross abnormality. The imaged portion of the right kidney again shows a cyst which appears unchanged.. IMPRESSION: No significant change in appearance of the hepatic cyst and renal cyst. Accredited by the [employer] in General Ultrasound. <Electronically signed by Andrew Muñoz > 04/11/21 [id number]
== END ==
LOC: M RAD 09:35
PROVIDERS: ATTEND Internal Medicine
DX: K76.89 Other specified diseases of liver (principal)

== ENCOUNTER → 2021-08-20 | Outpatient (CLI) | payer MEDICARE ==
[~2021-08-20] MED LIST changes: -AMLO10CA22; +AMLO10CA30; +ASPI81TA27 PO; +DOFE125C PO; +EPLE50TA PO; +HYDR10TAB PO; +ISOS10TA3 PO; +ISOS5TA PO; +MAGN400T2 PO; +META0.52 PO; +METO1TAB32 PO; +NITR0.4S14 SL; +POTA-151 PO; -POTA20TA6 PO; +TORS20TA2 PO; +UBID200C5 PO
== END ==
LOC: M LABSMTC 10:53
PROVIDERS: ATTEND Anesthesiology
DX: Z01.818 Encounter for other preprocedural examination (principal); Z11.52 Encounter for screening for COVID-19

== ENCOUNTER 2021-08-24 08:33 | Day surgery (SDC) | payer MEDICARE ==
[~2021-08-24] VITALS: Ht 162.6 cm; Wt 65.2 kg
[~2021-08-24 08:33] MED LIST changes: +LIDOCAINE 2% 100MG/5ML SDV (FOR ANES.) As Ordered ONE; +NS 1,000 ML IV ONE; +propofoL 200 MG/20 ML VIAL As Ordered ONE
[2021-08-24 12:00] VITALS: BP 146/77
== END 2021-08-24 12:15 | disposition home or self-care (01) ==
LOC: M OPP 08:33
PROVIDERS: ATTEND Surgery
DX: K63.5 Polyp of colon (principal); K57.30 Diverticulosis of large intestine without perforation or abscess without bleeding; D12.6 Benign neoplasm of colon, unspecified; Z79.02 Long term (current) use of antithrombotics/antiplatelets; Z85.828 Personal history of other malignant neoplasm of skin; Z86.010 Personal history of colon polyps; Z87.891 Personal history of nicotine dependence; Z80.0 Family history of malignant neoplasm of digestive organs

== ENCOUNTER → 2021-09-07 | Outpatient (CLI) | payer MEDICARE ==
[~2021-09-07] MED LIST changes: -LIDOCAINE 2% 100MG/5ML SDV (FOR ANES.) As Ordered ONE; -NS 1,000 ML IV ONE; -propofoL 200 MG/20 ML VIAL As Ordered ONE
[2021-09-07 13:44] LABS: BASO % 0.7 % (0.0-1.0); EOS # 0.2 10^3/uL (0.0-0.5); EOS % 4.1 % (0.0-3.0); HEMOGLOBIN 12.1 g/dl (13.5-17.5); LYMPH # 1.2 10^3/uL (1.5-5.0); LYMPH % 20.6 % (24.0-44.0); MEAN CORPUSCULAR HEMOGLOBIN 34.9 pg (27.0-33.0); MEAN CORPUSCULAR HGB CONC 34.6 g/dl (32.0-36.5); MEAN CORPUSCULAR VOLUME 100.9 fl (80.0-96.0); MONO # 0.6 10^3/uL (0.0-0.8); MONO % 10.6 % (2.0-8.0); NEUTROPHILS # 3.6 10^3/uL (1.5-8.5); NEUTROPHILS % 63.8 % (36.0-66.0); PLATELET COUNT, AUTOMATED 167 10^3/uL (150-450); RED BLOOD COUNT 3.47 10^6/uL (4.30-6.10); WHITE BLOOD COUNT 5.6 10^3/uL (4.0-10.0)
[2021-09-07 13:54] LABS: ALBUMIN 3.7 GM/DL (3.2-5.2); ALT/SGPT 30 U/L (12-78); BILIRUBIN,TOTAL 0.6 MG/DL (0.2-1.0); BLOOD UREA NITROGEN 32 MG/DL (7-18); CALCIUM LEVEL 8.9 MG/DL (8.8-10.2); CARBON DIOXIDE LEVEL 31 MEQ/L (21-32); CHLORIDE LEVEL 105 MEQ/L (98-107); CHOLESTEROL LEVEL 102 MG/DL (<200); CHOLESTEROL RISK RATIO 1.854 (<5); CREATININE FOR GFR 1.22 MG/DL (0.70-1.30); GLOMERULAR FILTRATION RATE > 60.0 (>42); GLUCOSE, FASTING 101 MG/DL (70-100); HDL CHOLESTEROL 55 MG/DL (>40); LDL CHOLESTEROL 33 MG/DL (<100); MAGNESIUM LEVEL 2.7 MG/DL (1.8-2.4); NON-HDL-C 47 MG/DL; POTASSIUM SERUM 4.5 MEQ/L (3.5-5.1); SODIUM LEVEL 139 MEQ/L (136-145); TOTAL PROTEIN 6.1 GM/DL (6.4-8.2); TRIGLYCERIDES LEVEL 71 MG/DL (<150)
[2021-09-07 14:14] LABS: HEMOGLOBIN A1c 5.3 %
== END ==
LOC: M PLALAB 09:42
PROVIDERS: ATTEND Internal Medicine
DX: I10 Essential (primary) hypertension (principal); E78.00 Pure hypercholesterolemia, unspecified; R73.01 Impaired fasting glucose; D64.9 Anemia, unspecified

== ENCOUNTER → 2021-09-14 | Outpatient (REF) | payer MEDICARE | LOC: M SFHCDERM 18:45 | PROVIDERS: ATTEND Nurse Practitioner Family | DX: L57.0 Actinic keratosis (principal) | CPT/HCPCS: 11102; 17000; 17003; 88305; G0463 ==

== ENCOUNTER → 2021-10-16 | Outpatient (REF) | payer MEDICARE | LOC: M SFHCDERM 17:17 | PROVIDERS: ATTEND Physician Assistant | DX: L90.5 Scar conditions and fibrosis of skin (principal) ==

== ENCOUNTER → 2022-09-24 | Outpatient (REF) | payer MEDICARE | LOC: M SFHCPLAZ 12:38 | PROVIDERS: ATTEND Internal Medicine Hematology | DX: E78.00 Pure hypercholesterolemia, unspecified (principal); R97.20 Elevated prostate specific antigen [PSA]; Z53.9 Procedure and treatment not carried out, unspecified reason ==

== ENCOUNTER → 2022-09-24 | Outpatient (CLI) | payer MEDICARE ==
[2022-09-24 15:56] LABS: HEMATOCRIT 35.7 % (42.0-52.0); MEAN CORPUSCULAR HEMOGLOBIN 34.2 pg (27.0-33.0); MEAN CORPUSCULAR HGB CONC 33.6 g/dl (32.0-36.5); MEAN CORPUSCULAR VOLUME 101.7 fl (80.0-96.0); PLATELET COUNT, AUTOMATED 152 10^3/uL (150-450); RED BLOOD COUNT 3.51 10^6/uL (4.30-6.10); WHITE BLOOD COUNT 4.8 10^3/uL (4.0-10.0)
[2022-09-24 16:18] LABS: CREATININE, URINE 26.6 MG/DL; MALB URINE SIEMENS < 3.0 MG/L; MAU/CREAT RATIO 11.2 MCG/MG (0.0-30.0)
[2022-09-24 16:20] LABS: ALBUMIN 3.8 G/DL (3.2-5.2); ALKALINE PHOSPHATASE 88 U/L (46-116); ALT/SGPT 35 U/L (7.0-40); AST/SGOT 27 U/L (<34); BILIRUBIN,TOTAL 0.8 MG/DL (0.3-1.2); BLOOD UREA NITROGEN 30 MG/DL (9-23); C REACTIVE PROTEIN QUANTITATIV < 0.40 MG/DL (<1.0); CALCIUM LEVEL 9.1 MG/DL (8.3-10.6); CARBON DIOXIDE LEVEL 34 MMOL/L (20-31); CHLORIDE LEVEL 102 MMOL/L (98-107); CHOLESTEROL LEVEL 110 MG/DL (<200); CHOLESTEROL RISK RATIO 2.18 (<5); CREATININE FOR GFR 1.31 MG/DL (0.70-1.30); GLUCOSE, FASTING 103 MG/DL (74-106); HDL CHOLESTEROL 50.4 MG/DL (>40); LDL CHOLESTEROL 43.6 MG/DL (<100); NON-HDL-C 59.6 MG/DL; POTASSIUM SERUM 4.1 MMOL/L (3.5-5.1); SODIUM LEVEL 141 MMOL/L (136-145); TOTAL PROTEIN 6.1 G/DL (5.7-8.2); TRIGLYCERIDES LEVEL 80 MG/DL (<150)
[2022-09-24 16:21] LABS: THYROID STIMULATING HORMONE 1.395 uIU/ML (0.55-4.78)
[2022-09-24 16:22] LABS: TOTAL 25(OH) VITAMIN D 43.7 NG/ML (20.0-100.0); VITAMIN B12 LEVEL 1167 PG/ML (211-911)
[2022-09-24 16:24] LABS: FERRITIN 53.4 NG/ML (10.5-307.3)
[2022-09-24 16:36] LABS: HEMOGLOBIN A1c 5.4 % (4.0-6.0)
== END ==
LOC: M PLALAB 12:38
PROVIDERS: ATTEND Internal Medicine Hematology
DX: E78.00 Pure hypercholesterolemia, unspecified (principal)
CPT/HCPCS: 36415; 80053; 80061; 82043; 82306; 82607; 82728; 83036; 83525; 84439; 84443; 85027; 86140; G0103

== ENCOUNTER → 2022-12-17 | Outpatient (CLI) | payer MEDICARE ==
[~2022-12-17] MED LIST changes: +FINA-48 PO; -PROS5TAB PO
== END ==
LOC: M PLAIMG 15:42
PROVIDERS: ATTEND Internal Medicine Hematology
DX: R10.13 Epigastric pain (principal)

== ENCOUNTER → 2023-01-09 | Outpatient (CLI) | payer MEDICARE ==
[2023-01-09 20:11] LABS: CREATININE FOR GFR 1.24 MG/DL (0.70-1.30); GLOMERULAR FILTRATION RATE 59.6 (>35); POTASSIUM SERUM 4.1 MMOL/L (3.5-5.1)
[2023-01-09 20:12] LABS: CALCIUM LEVEL 8.8 MG/DL (8.3-10.6)
[2023-01-10 09:54] LABS: MAGNESIUM LEVEL 2.2 MG/DL (1.8-2.4)
== END ==
LOC: M PLALAB 14:55
DX: I48.0 Paroxysmal atrial fibrillation (principal); Z51.81 Encounter for therapeutic drug level monitoring; Z79.899 Other long term (current) drug therapy

== ENCOUNTER 2023-03-14 21:15 | Emergency (ER) | payer MEDICARE ==
[~2023-03-14] VITALS: Ht 157.5 cm; Wt 63.0 kg
[2023-03-14 21:50] LABS: HEMATOCRIT 30.6 % (42.0-52.0); HEMOGLOBIN 10.8 g/dl (13.5-17.5); MEAN CORPUSCULAR HGB CONC 35.3 g/dl (32.0-36.5); PLATELET COUNT, AUTOMATED 180 10^3/uL (150-450); RED BLOOD COUNT 3.09 10^6/uL (4.30-6.10); WHITE BLOOD COUNT 3.9 10^3/uL (4.0-10.0)
[2023-03-14 22:02] LABS: INR 1.23; PROTHROMBIN TIME 15.2 SECONDS (12.5-14.5)
[2023-03-14 22:25] LABS: ALBUMIN 3.3 G/DL (3.2-5.2); ALKALINE PHOSPHATASE 100 U/L (46-116); ALT/SGPT 21 U/L (7.0-40); AST/SGOT 23 U/L (<34); BILIRUBIN,TOTAL 0.5 MG/DL (0.3-1.2); BLOOD UREA NITROGEN 25 MG/DL (9-23); CALCIUM LEVEL 8.3 MG/DL (8.3-10.6); CARBON DIOXIDE LEVEL 26 MMOL/L (20-31); CHLORIDE LEVEL 99 MMOL/L (98-107); CREATININE FOR GFR 1.08 MG/DL (0.70-1.30); GLOMERULAR FILTRATION RATE > 60.0 (>35); GLUCOSE, FASTING 112 MG/DL (74-106); POTASSIUM SERUM 3.7 MMOL/L (3.5-5.1); SODIUM LEVEL 131 MMOL/L (136-145); TOTAL PROTEIN 5.5 G/DL (5.7-8.2)
[2023-03-14 22:28] LABS: RSV AMPLIFICATION NEGATIVE (NEGATIVE)
[2023-03-14] MEDS ORDERED: ISOVUE-370 76% 100ML VIAL As Ordered ONE (23:22)
[2023-03-14 23:55] VITALS: TEMP 96.7
[2023-03-15] MEDS ORDERED: ISOSORBIDE DIN (ISORDIL) 10MG TAB PO ONE
[2023-03-15] MEDS ORDERED: **hydrALAZINE** 10 MG TAB PO ONE
[2023-03-15 01:04] VITALS: BP 187/84
[2023-03-15 01:42] LABS: CK-MB VALUE MASS 1.3 NG/ML (<3.6)
[2023-03-15 01:43] LABS: MB/CK RELATIVE INDEX 2.16 (< OR =4)
[2023-03-15 04:11] VITALS: BP 160/84; O2SAT 98
== END 2023-03-15 04:18 | disposition home or self-care (01) ==
LOC: M ED 21:15
DX: I10 Essential (primary) hypertension (principal); B34.8 Other viral infections of unspecified site; R00.1 Bradycardia, unspecified; I50.22 Chronic systolic (congestive) heart failure; E78.5 Hyperlipidemia, unspecified; K21.9 Gastro-esophageal reflux disease without esophagitis; N40.0 Benign prostatic hyperplasia without lower urinary tract symptoms; Z86.79 Personal history of other diseases of the circulatory system; Z79.01 Long term (current) use of anticoagulants; Z79.82 Long term (current) use of aspirin; Z79.02 Long term (current) use of antithrombotics/antiplatelets; Z79.810 Long term (current) use of selective estrogen receptor modulators (SERMs); Z79.811 Long term (current) use of aromatase inhibitors; Z79.899 Other long term (current) drug therapy
CPT/HCPCS: 36415; 70450; 70496; 70498; 71045; 80053; 81001; 82550; 82553; 84484; 85027; 85610; 87631; 93005; 99284; Q9967

== ENCOUNTER → 2023-03-18 | Outpatient (CLI) | payer MEDICARE ==
[2023-03-18 14:28] LABS: HEMATOCRIT 32.6 % (42.0-52.0); HEMOGLOBIN 11.2 g/dl (13.5-17.5); MEAN CORPUSCULAR HEMOGLOBIN 35.1 pg (27.0-33.0); MEAN CORPUSCULAR HGB CONC 34.4 g/dl (32.0-36.5); MEAN CORPUSCULAR VOLUME 102.2 fl (80.0-96.0); PLATELET COUNT, AUTOMATED 211 10^3/uL (150-450); RED BLOOD COUNT 3.19 10^6/uL (4.30-6.10); WHITE BLOOD COUNT 4.2 10^3/uL (4.0-10.0)
[2023-03-18 14:31] LABS: C REACTIVE PROTEIN QUANTITATIV < 0.40 MG/DL (<1.0)
[2023-03-18 14:36] LABS: THYROID STIMULATING HORMONE 2.408 uIU/ML (0.55-4.78); VITAMIN B12 LEVEL 1171 PG/ML (211-911)
[2023-03-18 14:52] LABS: ALBUMIN 3.5 G/DL (3.2-5.2); ALKALINE PHOSPHATASE 97 U/L (46-116); ALT/SGPT 26 U/L (7.0-40); AST/SGOT 20 U/L (<34); BILIRUBIN,TOTAL 0.6 MG/DL (0.3-1.2); BLOOD UREA NITROGEN 24 MG/DL (9-23); CALCIUM LEVEL 8.5 MG/DL (8.3-10.6); CARBON DIOXIDE LEVEL 26 MMOL/L (20-31); CHLORIDE LEVEL 102 MMOL/L (98-107); CHOLESTEROL LEVEL 166 MG/DL (<200); CHOLESTEROL RISK RATIO 3.62 (<5); CREATININE FOR GFR 1.32 MG/DL (0.70-1.30); GLOMERULAR FILTRATION RATE 55.4 (>35); GLUCOSE, FASTING 96 MG/DL (74-106); HDL CHOLESTEROL 45.8 MG/DL (>40); MAGNESIUM LEVEL 2.2 MG/DL (1.8-2.4); NON-HDL-C 120.2 MG/DL; POTASSIUM SERUM 4.3 MMOL/L (3.5-5.1); SODIUM LEVEL 135 MMOL/L (136-145); TOTAL PROTEIN 5.7 G/DL (5.7-8.2); TRIGLYCERIDES LEVEL 141 MG/DL (<150)
[2023-03-18 14:57] LABS: CREATININE, URINE 77.9 MG/DL; MAU/CREAT RATIO 15.4 MCG/MG (0.0-30.0)
[2023-03-18 14:58] LABS: HEMOGLOBIN A1c 5.1 % (4.0-6.0)
== END ==
LOC: M PLALAB 08:53
PROVIDERS: ATTEND Internal Medicine Hematology
DX: E78.00 Pure hypercholesterolemia, unspecified (principal); Z79.899 Other long term (current) drug therapy

== ENCOUNTER → 2023-12-23 | Outpatient (REF) | payer MEDICARE ==
[~2023-12-23] MED LIST changes: -EPLE50TA PO; +EPLE50TA8 PO; +HYDR-161 PO; -HYDR10TAB PO
== END ==
LOC: M LAB REF 16:28
PROVIDERS: ATTEND Internal Medicine
DX: I50.9 Heart failure, unspecified (principal)

== ENCOUNTER → 2024-02-04 | Outpatient (REF) | payer MEDICARE ==
[2024-02-04 17:35] LABS: FERRITIN 34.7 NG/ML (10.5-307.3)
[2024-02-04 17:37] LABS: IRON (FE) 66 UG/DL (65-175); PERCENT SATURATION 21.7 % (19.7-50.0); TOTAL IRON BINDING CAPACITY 304 UG/DL (250-425)
[2024-02-04 17:38] LABS: VITAMIN B12 LEVEL 592 PG/ML (211-911)
[2024-02-04 17:39] LABS: FOLATE > 24.0 NG/ML (>5.4)
== END ==
LOC: M LAB REF 16:17
PROVIDERS: ATTEND Internal Medicine
DX: D64.9 Anemia, unspecified (principal)

== ENCOUNTER → 2024-03-09 | Outpatient (CLI) | payer MEDICARE ==
[2024-03-09 16:53] LABS: PLATELET COUNT, AUTOMATED 159 10^3/uL (150-450)
[2024-03-09 17:14] LABS: INR 1.29; PARTIAL THROMBOPLASTIN TIME 30.1 SECONDS (24.8-34.2); PROTHROMBIN TIME 15.7 SECONDS (12.5-14.5)
[2024-03-09 17:16] LABS: COLLAGEN EPINEPHRINE 195 SECONDS (74-162)
[2024-03-09 17:38] LABS: COLLAGEN ADP 99 SECONDS (56-103)
== END ==
LOC: M PLALAB 15:08
PROVIDERS: ATTEND Physical Medicine & Rehabilitation
DX: Z01.818 Encounter for other preprocedural examination (principal); Z79.01 Long term (current) use of anticoagulants

== ENCOUNTER → 2024-03-15 | Outpatient (CLI) | payer MEDICARE ==
[2024-03-15 10:44] LABS: INR 1.04; PROTHROMBIN TIME 13.3 SECONDS (12.5-14.5)
[2024-03-15 11:00] LABS: COLLAGEN EPINEPHRINE 89 SECONDS (74-162)
== END ==
LOC: M LAB 09:12
PROVIDERS: ATTEND Physical Medicine & Rehabilitation
DX: Z01.812 Encounter for preprocedural laboratory examination (principal); Z79.01 Long term (current) use of anticoagulants

== ENCOUNTER → 2024-05-04 | Outpatient (REF) | payer MEDICARE ==
[~2024-05-04] MED LIST changes: +ATOR-398 PO; +EPLE50TA12 PO; -EPLE50TA8 PO; -LIPI80TA PO
== END ==
LOC: M LAB REF 16:45
PROVIDERS: ATTEND Internal Medicine
DX: I13.0 Hypertensive heart and chronic kidney disease with heart failure and stage 1 through stage 4 chronic kidney disease, or unspecified chronic kidney disease (principal)

== ENCOUNTER → 2024-05-17 | Outpatient (REF) | payer MEDICARE | LOC: M LAB REF 17:38 | PROVIDERS: ATTEND Internal Medicine | DX: I50.30 Unspecified diastolic (congestive) heart failure (principal) ==

== ENCOUNTER → 2024-05-27 | Outpatient (REF) | payer MEDICARE | LOC: M LAB REF 16:05 | PROVIDERS: ATTEND Internal Medicine | DX: I50.9 Heart failure, unspecified (principal); E83.42 Hypomagnesemia ==

== ENCOUNTER → 2024-06-24 | Outpatient (REF) | payer MEDICARE | LOC: M LAB REF 16:38 | PROVIDERS: ATTEND Internal Medicine | DX: I50.30 Unspecified diastolic (congestive) heart failure (principal); E83.42 Hypomagnesemia ==

== ENCOUNTER → 2024-07-28 | Outpatient (REF) | payer MEDICARE | LOC: M SFHCDERM 17:38 | PROVIDERS: ATTEND Physician Assistant | DX: L57.0 Actinic keratosis (principal) ==

== ENCOUNTER → 2025-02-09 | Outpatient (REF) | payer MEDICARE ==
[~2025-02-09] MED LIST changes: -DOFE125C PO; +DOFE125C17 PO
== END ==
LOC: M LAB REF 17:40
PROVIDERS: ATTEND Internal Medicine
DX: I50.9 Heart failure, unspecified (principal); I42.9 Cardiomyopathy, unspecified

== ENCOUNTER → 2025-03-03 | Outpatient (REF) | payer MEDICARE ==
[2025-03-03 17:12] LABS: INR 1.17
== END ==
LOC: M LAB REF 16:51
PROVIDERS: ATTEND Internal Medicine
DX: I25.10 Atherosclerotic heart disease of native coronary artery without angina pectoris (principal)

== ENCOUNTER → 2025-04-19 | Outpatient (REF) | payer MEDICARE | LOC: M LAB REF 17:13 | PROVIDERS: ATTEND Internal Medicine | DX: I50.9 Heart failure, unspecified (principal) ==

== ENCOUNTER → 2025-05-24 | Outpatient (REF) | payer MEDICARE ==
[2025-05-24 19:04] LABS: IRON (FE) 102.0 UG/DL (65-175); PERCENT SATURATION 29.9 % (19.7-50.0)
== END ==
LOC: M LAB REF 17:25
PROVIDERS: ATTEND Internal Medicine
DX: E61.1 Iron deficiency (principal); I50.9 Heart failure, unspecified